=== PATIENT | male | born 1945 | race Caucasian/White ===

== ENCOUNTER 2025-01-06 12:20 | Inpatient (IN) ==
--- NOTE | 2025-01-06 14:29 | XRay Report ---
XR chest 1V portable CLINICAL HISTORY: Dyspnea COMPARISON STUDY: 12/08/2024 FINDINGS: Heart size and pulmonary vasculature are normal. There is a small area of faint patchy opac ity at the lateral right lung base. No other consolidation or pleural effusion. No pneumothorax. IMPRESSION: Possible small area of early pneumonia right lung base. ACT 112: Negative or not required by law. Electronically signed by: Gatito Shaver M.D. 01/06/2025 2:27 PM
[2025-01-06 14:52] LABS: Hematocrit (blood only) 48.9 % (42.0-52.0); Hemoglobin 16.4 g/dL (14.0-18.0); Immature Granulocytes # (auto) 0.05 K/uL (0.01-0.20); Immature Granulocytes % (auto) 0.7 %; Mean Corpuscular Hemoglobin 30.3 pg (25.0-34.0); Mean Corpuscular Volume 90.4 fL (80.0-100.0); Platelet Count 118 K/uL (130-400); RDW Standard Deviation 43.7 fL (36.4-46.3); Red Blood Count 5.41 M/uL (4.70-6.10); White Blood Count 7.45 K/ul (4.8-10.8)
[2025-01-06 15:18] LABS: Alanine Aminotransferase 35 U/L (7-52); Albumin Globulin Ratio 1.3 (0.9-2); Albumin Level 4.2 gm/dl (3.4-5.0); Alkaline Phosphatase 113 U/L (34-104); Anion Gap 10 (3-11); Bilirubin,Total 2.0 mg/dl (0.2-1.0); Blood Urea Nitrogen 30 mg/dl (6-23); Calcium 9.6 mg/dl (8.6-10.3); Carbon Dioxide 27 mmol/L (21-32); Chloride 103 mmol/L (98-107); Globulin 3.3 gm/dl (2.5-4.0); Glucose 209 mg/dl (70-99(Fasting)); Potassium 4.7 mmol/L (3.5-5.1); Sodium 140 mmol/L (136-145); Total Protein 7.5 gm/dl (6.0-8.3)
--- NOTE | 2025-01-06 15:21 | Ultrasound Report ---
US venous doppler LE RT HISTORY: DVT r/o COMPARISON: None TECHNIQUE: Multiple real-time sonographic images of the right lower extremity deep venous structures were obtained assessing grayscale appearance, color and spectral flow. FINDINGS: There is DVT at the right common femoral vein, right superficial femoral vein, and right po pliteal vein. There is superficial thrombus in the greater saphenous vein. Below the knee veins are n ot well seen. There is a Neumann's cyst at the popliteal fossa measuring 5 cm. IMPRESSION: The exam is positive for DVT at the right lower extremity. ACT 112: Negative or not required by law. The above report was generated using voice recognition software. It may contain grammatical, syntax o r spelling errors. Electronically signed by: Gatito Shaver M.D. 01/06/2025 3:20 PM
--- NOTE | 2025-01-06 15:59 | Emergency Department Note ---
History of Present Illness General Chief complaint: Swelling/Edema to Extremity Stated complaint: covid +, r leg swollen, discolored Time Seen by Provider: 01/06/25 13:32 Source: patient Mode of arrival: ambulatory Limitations: no limitations History of Present Illness Maximum Pain Intensity: 0 Patient is an 79-year-old male with history of prior DVT who presents for right lower extremity swelling that he noticed last night. He had stopped his Xarelto 3 days ago in preparation for placement of a spinal stimulator. Unfortunately he tested positive for COVID preoperatively and procedure was discontinued at this time. He says he has been sitting a lot in his recliner chair recently. He also reports some pain in the right lower extremity though it is tolerable at this time. Denies any lightheadedness, dizziness, chest pain, palpitations. No numbness or tingling to the right lower extremity. Home Medications Medication Instructions Recorded Confirmed Type folic acid 800 mcg tablet 0.8 mg PO HS 08/16/24 01/06/25 History furosemide 20 mg tablet (Lasix) 20 mg PO Q OTHER DAY PRN Edema 08/16/24 01/06/25 History losartan 25 mg tablet 25 mg PO HS 08/16/24 01/06/25 History rivaroxaban 20 mg tablet (Xarelto) 20 mg PO QPM 08/16/24 12/26/24 History tamsulosin 0.4 mg capsule 0.4 mg PO QPM 08/16/24 12/26/24 History gabapentin 100 mg capsule 100 mg PO BID 11/07/24 01/06/25 History glipizide 10 mg tablet 10 mg PO QPM 11/07/24 01/06/25 History cholecalciferol (vitamin D3) 125 125 mcg PO HS 12/26/24 01/06/25 History mcg (5,000 unit) tablet (Vitamin D3) fluticasone propionate 50 1 spray intranasal HS 12/26/24 01/06/25 History mcg/actuation nasal spray,suspension lecithin 1,200 mg capsule 2,400 mg PO QAM 12/26/24 01/06/25 History vitamin E 268 mg (400 unit) capsule 2 cap PO QAM 12/26/24 12/26/24 History Allergies Allergy/AdvReac Type Severity Reaction Status Date / Time Penicillins Allergy Mild Swelling Verified 01/06/25 11:35 of the Eye Sulfa (Sulfonamide Allergy Mild swelling Verified 01/06/25 11:35 Antibiotics) morphine AdvReac Intermediate dry heaves Verified 01/06/25 11:35 empagliflozin AdvReac Mild Nausea Verified 01/06/25 11:35 [From Jardiance] metformin AdvReac Mild Heartburn Verified 01/06/25 11:35 semaglutide [From Ozempic] AdvReac Mild Nausea Verified 01/06/25 11:35 Past Med/Surg History Problem List (Updated 01/06/25 @ 15:59 by Franklin Jose MD) DVT (deep venous thrombosis) (Acute) Encounter for pre-operative examination Chronic pain of left ankle Status post ORIF Chronic anticoagulation Polyneuropathy Spinal stenosis of lumbar region Chronic radicular lumbar pain Chronic low back pain Osteoarthritis HTN (hypertension) Medical History (Updated 01/06/25 @ 15:59 by Franklin Joes MD) Hyperthyroidism No meds PCP monitoring Type II diabetes mellitus Per PCP records CHF (congestive heart failure) EF 45% per 2009 ECHO Most recent ECHO May 2022 shows EF 55-60% per cardio records Paroxysmal A-fib on Xarelto Hypertension Chronic back pain On anticoagulant therapy xarelto daily d/t hx of dvt History of peripheral vascular disease History of DVT of lower extremity (02/2014) reason for xarelto--happened after stent placement in right iliac artery History of TMJ syndrome pt states it was "many years ago"--it resolved after "seeing dentist who had him do exercises that cured it" Hepatomegaly Nontoxic goiter Venous insufficiency Parathyroid disease Gout Fatty liver Esophagitis Kidney stones hx Asbestosis History of BPH Surgical History History of anal fistulotomy History of colonoscopy History of esophagogastroduodenoscopy (EGD) Status post scrotal varicocelectomy right History of procedure for peripheral vascular disease before 2019 was last procedure--x4 on right iliac artery/x1 on left History of tooth extraction History of nasal septoplasty Status post biopsy of thyroid gland H/O parathyroidectomy with left side of thyroid removal at same time H/O hemorrhoidectomy History of ankle surgery left ankle History of tonsillectomy History of surgery on arm right arm fracture Family History Other No family history of adverse response to anesthesia Social History (Updated 08/16/24 @ 13:15 by Joy Harrison RN) Smoking Status: Never smoker Second Hand Exposure: No; Do You Dip or Chew Tobacco: No; Hx Alcohol Use: No Hx Substance Use: No Preferred Language: [place] Communication Ability: Effective Visual Impairment: No Limitations [employer] Required: No Beliefs That Will Affect Care: None marital status: Single Current Living Situation: Alone 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 Physical Exam Vital Signs Vital Signs - 24 hr 01/06/25 12:20 01/06/25 12:27 01/06/25 14:13 Temperature 36.7 C Temperature Source Oral Pulse Rate 95 H 83 Pulse Rate [Left Finger] 96 H Pulse Rhythm Regular Pulse Rhythm [Left Finger] Respiratory Rate 18 18 Respiratory Effort / Characteristics Non-Labored Spontaneous Respiratory Depth Normal Respiratory Pattern Regular Blood Pressure 116/83 Blood Pressure [Left Arm] 117/82 Blood Pressure Mean 94 Blood Pressure Mean [Left Arm] 93 Blood Pressure Position Sitting Pulse Oximetry 96 96 98 Oxygen Delivery Method Room Air Room Air Room Air Sepsis Recent Fever Within 48 Hours No Sepsis New/Unexplained Change in Mental Status No Sepsis Action Taken by Nursing No Action Required 01/06/25 14:14 01/06/25 14:20 Temperature Temperature Source Pulse Rate 83 Pulse Rate [Left Finger] 77 Pulse Rhythm Pulse Rhythm [Left Finger] Regular Respiratory Rate 20 Respiratory Effort / Characteristics Non-Labored Spontaneous Respiratory Depth Normal Respiratory Pattern Regular Blood Pressure Blood Pressure [Left Arm] 136/86 Blood Pressure Mean Blood Pressure Mean [Left Arm] 102 Blood Pressure Position Pulse Oximetry 95 Oxygen Delivery Method Room Air Sepsis Recent Fever Within 48 Hours Sepsis New/Unexplained Change in Mental Status Sepsis Action Taken by Nursing See below. Constitutional WD/WN, vitals as above Respiratory normal respiratory effort, lungs clear to auscultation Cardiovascular RRR, no murmur, no edema Musculoskeletal Right lower extremity is dusky and diffusely swollen up to the right groin, 2+ DP pulses noted on the right. No reproducible pain with hyperflexion of the toes on the right foot. Sensation intact in the right lower extremity. Medical Decision Making Differential Diagnosis DDx includes but not limited to: DVT, lymphedema, superficial thrombophlebitis, arterial occlusion Medical Records Attestation: I reviewed the patient's medical records. Home Medications Current Medication List: was personally reviewed by me Laboratory Data Attestation: I reviewed the patient's lab results. 01/06/25 14:25 01/06/25 14:25 Lab Results 01/06/25 Range/Units 14:25 WBC 7.45 (4.8-10.8) K/ul RBC 5.41 (4.70-6.10) M/uL Hgb 16.4 (14.0-18.0) g/dL Hct 48.9 (42.0-52.0) % MCV 90.4 (80.0-100.0) fL MCH 30.3 (25.0-34.0) pg MCHC 33.5 (32.0-36.0) g/dL RDW Std Deviation 43.7 (36.4-46.3) fL RDW Coeff of Diandra 13.2 (11.5-14.5) % Plt Count 118 L (130-400) K/uL MPV 9.7 (9.4-12.4) fL Immature Gran % (Auto) 0.7 % Neut % (Auto) 68.3 % Lymph % (Auto) 19.9 % [place] % (Auto) 10.7 % Eos % (Auto) 0.1 % Baso % (Auto) 0.3 % Neut # (Auto) 5.09 (1.40-6.50) K/uL Lymph # (Auto) 1.48 (1.20-3.40) K/uL [place] # (Auto) 0.80 H (0.11-0.59) K/uL Eos # (Auto) 0.01 (0.00-0.50) K/uL Baso # (Auto) 0.02 (0.00-0.20) K/uL Immature Gran # (Auto) 0.05 (0.01-0.20) K/uL Sodium 140 (136-145) mmol/L Potassium 4.7 (3.5-5.1) mmol/L Chloride 103 (98-107) mmol/L Carbon Dioxide 27 (21-32) mmol/L Anion Gap 10 (3-11) BUN 30 H (6-23) mg/dl Creatinine 1.08 (0.6-1.4) mg/dl Est Cr Clr Drug Dosing Not Reportable eGFR 68.94 BUN/Creatinine Ratio 27.8 H (10-20) Glucose 209 H (70-99(Fasting)) mg/dl Calcium 9.6 (8.6-10.3) mg/dl Total Bilirubin 2.0 H (0.2-1.0) mg/dl AST 25 (13-39) U/L ALT 35 (7-52) U/L Alkaline Phosphatase 113 H (34-104) U/L Troponin I High Sens 7.0 (0-20) pg/ml B-Natriuretic Peptide 16 (0-100) pg/ml Total Protein 7.5 (6.0-8.3) gm/dl Albumin 4.2 (3.4-5.0) gm/dl Globulin 3.3 (2.5-4.0) gm/dl Albumin/Globulin Ratio 1.3 (0.9-2) Imaging Data Radiologist's Impression: Chest X-Ray 01/06/25 13:33 XR chest 1V portable CLINICAL HISTORY: Dyspnea COMPARISON STUDY: 12/08/2024 FINDINGS: Heart size and pulmonary vasculature are normal. There is a small area of faint patchy opacity at the lateral right lung base. No other consolidation or pleural effusion. No pneumothorax. IMPRESSION: Possible small area of early pneumonia right lung base. ACT 112: Negative or not required by law. Electronically signed by: Gatito Shaver M.D. 01/06/2025 2:27 PM Venous Doppler Study 01/06/25 13:56 US venous doppler LE RT HISTORY: DVT r/o COMPARISON: None TECHNIQUE: Multiple real-time sonographic images of the right lower extremity deep venous structures were obtained assessing grayscale appearance, color and spectral flow. FINDINGS: There is DVT at the right common femoral vein, right superficial femoral vein, and right popliteal vein. There is superficial thrombus in the greater saphenous vein. Below the knee veins are not well seen. There is a Neumann's cyst at the popliteal fossa measuring 5 cm. IMPRESSION: The exam is positive for DVT at the right lower extremity. ACT 112: Negative or not required by law. The above report was generated using voice recognition software. It may contain grammatical, syntax or spelling errors. Electronically signed by: Gatito Shaver M.D. 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 He has diffuse edema to the right lower extremity with some discoloration however arterial pulses are noted in right foot. Pain is tolerable here in the ED. No sensation deficits or weakness noted on my examination. DVT ultrasound shows evidence of extensive DVT from the right popliteal vein to the common femoral vein. Spoke with Dr. Shi with vascular surgery who recommends starting patient on heparin and will consult on the patient as an inpatient. No indication for thrombectomy at this time. CTA was ordered to rule out any arterial process based on the findings on clinical exam. Signed out to Dr. Fernandes pending results of CTA and admission to hospitalist service. Impression & Plan DVT (deep venous thrombosis) Discharge Plan Visit Data Chief Complaint: Swelling/Edema to Extremity Stated Complaint: covid +, r leg swollen, discolored ED Provider: Franklin Jose Discharge Problem: DVT (deep venous thrombosis) Patient Disposition: Admitted As Inpatient Condition: Good Forms Stand Alone Forms: [facility] [employer] Prescriptions Prescriptions: No Action tamsulosin 0.4 mg capsule 0.4 mg PO QPM Xarelto 20 mg tablet 20 mg PO QPM Rx Instructions: must administer with evening meal losartan 25 mg tablet 25 mg PO HS furosemide [Lasix] 20 mg tablet 20 mg PO Q OTHER DAY PRN (Reason: Edema) folic acid 800 mcg tablet 0.8 mg PO HS glipizide 10 mg tablet 10 mg PO QPM gabapentin 100 mg capsule 100 mg PO BID fluticasone propionate 50 mcg/actuation [place],Suspension 1 spray INTRANASAL HS Rx Instructions: administer into each nostril cholecalciferol (vitamin D3) [Vitamin D3] 125 mcg (5,000 unit) Tablet 125 mcg PO HS lecithin 1,200 mg Capsule 2,400 mg PO QAM vitamin E [Vitamin E-400] 268 mg (400 unit) Capsule 2 cap PO QAM Referrals Referrals: Jonny Tierney D.O. [Primary Care Provider] -
[2025-01-06] MEDS ORDERED: HEPARIN SOD (PORCINE) 1000 UNIT/ML IV ONE (16:15)
[2025-01-06] MEDS: OPTIRAY 320 125ml IV ONE (16:39)
[2025-01-06] MEDS: HEPARIN SOD (PORCINE) 1000 UNIT/ML IV ONE (16:54)
[2025-01-06] MEDS: HEPARIN 25000 UNIT/500 ML D5W 25,000 UNITS/500 ML BAG IV SCH (16:54)
[2025-01-06] MEDS: Heparin IV Adult Wt-Based Standard w/ INITIAL Bolus Protocol IV STA (16:59)
[2025-01-06 18:56] LABS: Appearance Urine Clear (Clear); Bacteria Urine Automated None Seen (None Seen); Glucose Urine UA 1+ (Negative); RBC Urine Automated 0-2 /hpf (0-2); WBC Urine Automated 0-5 /hpf (0-5)
--- NOTE | 2025-01-06 19:21 | CT Scan Report ---
Technique: Axial computed tomography images were obtained of the abdomen, pelvis, and lower extremities after the administration of intravenous contrast according to the CT angiogram protocol No prior examination is available for comparison Findings: The abdominal aorta appears unremarkable with no sign of aneurysm or dissection. No stenosis is seen involving it. The celiac axis and superior mesenteric artery are patent with no stenosis identified. The inferior mesenteric artery is patent as well. There is no sign of renal artery stenosis. The right common iliac, external iliac, and internal iliac arteries appear unremarkable. No stenosis is seen of the right common femoral artery. The right profunda femoral artery is patent. There is no significant stenosis of the right superior femoral or popliteal arteries. The right calf arteries demonstrate limited contrast enhancement. There is suspected occlusion of the right anterior tibial artery proximally. There is possible occlusion of the right posterior tibial and peroneal arteries also The left common iliac, external iliac, and internal iliac arteries appear unremarkable. No stenosis is seen of the left common femoral artery. The left profunda femoral artery is patent. There is multifocal plaque in the left superficial femoral artery, without significant stenosis. No stenosis is seen of the left popliteal artery. There is occlusion of the left anterior tibial artery proximally. There are several moderate severity stenoses of the proximal and mid left peroneal artery. No definite stenosis is seen of the left posterior tibial artery There is fatty infiltration of the liver. There is a 1.2 cm apparent cyst in the right hepatic lobe. No definite liver mass lesion is seen. The portal vein is patent. The gallbladder appears unremarkable. No bile duct dilatation is noted. The spleen is of normal size. No focal splenic lesion is evident. The pancreas appears normal with no sign of acute or chronic pancreatitis and no mass lesion noted. The pancreatic duct is of normal caliber. The adrenal glands appear unremarkable. No definite renal or proximal ureteral calculi are seen on this contrast-enhanced study. There is no hydronephrosis or perinephric stranding. No renal mass lesion is identified. There is a 1.5 cm right renal cyst and there is a suspected 4 mm left renal cyst No adenopathy is seen. The stomach appears normal. There is no sign of small bowel obstruction. There is diverticulosis without evidence of diverticulitis. There is no sign of appendicitis. No free intraperitoneal fluid or air is identified. No distal ureteral or bladder calculi are seen. No bladder mass lesion is evident. There are stents in the common iliac veins bilaterally and the right external iliac vein Mild patchy opacity in the right lower lobe is likely due to atelectasis or scar. There is coronary atherosclerosis No fracture is identified. No focal osseous lesion is seen. There is lumbar scoliosis and degenerative disc disease. There are apparent varicose veins in the medial right leg There is a 5.4 x 3.1 cm right knee Neumann's cyst. There is a smaller left knee Neumann's cyst containing apparent joint body. There is subcutaneous edema in the right calf and to a lesser extent the left calf Impression: 1. Normal-appearing abdominal aorta 2. No sign of renal or mesenteric artery stenosis 3. No apparent stenosis of the pelvic or proximal leg arteries 5. Occlusion of the RICHI bilaterally. There is possible occlusion of the right [employer] and peroneal arteries as well, with evaluation limited by suboptimal contrast enhancement. There are moderate severity stenoses of the left peroneal artery 6. Bilateral common iliac vein and right external iliac vein stents 7. Fatty infiltration of the liver 8. Hepatic and bilateral renal cysts 9. Diverticulosis without evidence of diverticulitis 10. Right knee Neumann's cyst and smaller left knee Neumann's cyst containing a joint body 11. Coronary atherosclerosis ACT 112: Positive. There are findings on this exam that require communication between the performing entity and the patient following Patient Test Result Information Act ([place] ACT 112) guidelines. Electronically signed by Nikita Jaeger 01-06-2025 7:20 PM
--- NOTE | 2025-01-06 19:51 | Emergency Department Note ---
ED Visit Note Received this patient in signout from Dr. Jose. Patient on Xarelto for hopeful pain pump placement tested positive COVID and had increased right leg swelling. Found to have a large DVT here extended the common femoral vein. CT angio of the lower leg was obtained although the patient had pulses and sensation given the swelling. This was finally obtained after new IV was placed and radiology interpretation showing evidence of intact upper stents although some distal tibial vascular abnormalities are noted. No believe the patient suffering from a cold or ischemic limb at this time and has already been anticoagulated with heparin. Will have the patient admitted and vascular surgery consulted for evaluation tomorrow. Patient again not in distress and eager to eat at this point. Do not believe he requires further emergent intervention at this point. .
--- NOTE | 2025-01-06 19:55 | History & Physical Report ---
Date of Service January 06, 2025 Assessment & Plan (1) DVT (deep venous thrombosis): (2) COVID toes: (3) Hyperbilirubinemia: Plan 79-year-old male PMHx HTN, OA, chronic radicular lumbar pain/low back pain, history of DVT on Xarelto, and BPH presenting for R leg swelling and discolo ration. Patient has been off his Xarelto for approximately 3 days for preprocedure reasons. His evaluation is without leukocytosis/leukopenia, stable H&H, plt at 118,; CMP no gross electrolyte abnormalities with exception of slightly elevated BUN/creatinine ratio 27.8 and a bilirubin of 2. UA without infection. He is COVID-positive and CXR reveals a possible R lobe developing pneumonia. Venous Doppler of the RLE is positive for a DVT, and aorta with runoff CTA shows occlusion of RICHI bilaterally and possible occlusion of R CORRECTIVE THERAPY AIDE and peroneal arteries. Heparin drip is initiated in the ED. Patient without respiratory symptoms at time of admission. Further management for DVT. #RLE DVT Prior history on DVT, on Xarelto at baseline but had discontinued his Xarelto approximately 3 days CATERING CHEF as he was to have a procedure on 01/06/2025 for a pain pump/stimulator, ultimately canceled as he tested positive for COVID-19. ? Xarelto failure, has been off for ~ 3 days then with a very quick development of clot if so. Will consult pain management as well in terms of moving forward with pain stimulator placement and how that will look moving forward if patient unable to be off anticoagulation. - CBC stable H/H, plt 118; PT/INR pending - Hypercoag workup pending (deferred anti-thrombin III + lupus testing since on heparin) - RLE venous Doppler positive for DVT (R common femoral, R superficial femoral, R popliteal, superficial thrombus great saphenous vein) - Aorta with runoff CTA occlusion RICHI bilaterally, possible occlusion RPCA and peroneal arteries, moderate stenosis L peroneal artery - EKG pending - Continue to hold po Xarelto - Heparin drip initiated - continue - Vascular consulted - appreciate input + recs - Hematology consulted - appreciate input + recs - Pain management consulted - appreciate input + recs #COVID COVID 19 diagnosed earlier day of arrival, however patient was without symptoms. Reports ~ 1 week CATERING CHEF was with URI symptoms and cough (nonproductive), utilized at home nebulizer and felt better. Seen 4 day CATERING CHEF, prescribed Z-pack at that time, has been taking as prescribed. Unknown sick contacts. Not hypoxic. - CBC without leukocytosis or leukopenia - CXR possible small early pneumonia at the R lung base - IS, O2 if needed - none at baseline - Isolation precautions - DuoNeb prn wheezing/SOB - D/c Z-pack - deferred further antibiotics at time of admission, no bacterial infection -- adjust as medically appropriate #Hyperbilirubinemia Without abdominal pain, no vomiting. Still with gallbladder. - Bilirubin 2.0, LFTs otherwise WNL; pending direct bilirubin - Aorta w/ runoff CTA reveals hepatic cysts and fatty infiltration of liver, gallbladder is unremarkable w/o bile duct dilatation - Further imaging deferred at time of admission #T2DM H/o T2DM; At home regimen includes glipizide, no insulin use. Neuropathy as well, on gabapentin. - Glucose on arrival 209; A1c pending - SSI deferred at time of admission - continue home glipizide - Continue gabapentin - BSG ACHS - Adjust regimen as needed #HTN- Losartan - continue #Edema- Furosemide prn - hold at time of admission #BPH- Tamsulosin - continue Dispo: Admit, PCU VTE Prophylaxis: Heparin - treatment dose This document was dictated utilizing [employer]. Please excuse any grammatical errors that may be secondary to use of this software. Admission and Anticipated Discharge Date Admission Date: 01/06/2025 History of Present Illness Chief Complaint: RLE pain/swelling Primary Care Provider: Jonny Tierney 79-year-old male PMHx HTN, OA, chronic radicular lumbar pain/low back pain, history of DVT on Xarelto, and BPH presenting for R leg swelling and discoloration. Patient has been off of his Xarelto for 3 days as he was due to have a nerve stimulator placed the day of arrival but unfortunately tested positive for COVID so the procedure was canceled. Patient reports prior history of DVT in the right leg in February 2024 because his "vessels were crushed" and this required surgical intervention. He notes for the past 3 days CATERING CHEF he has been off of his Xarelto because he was scheduled to have a pain pump/stimulator placed on the day of arrival. At approximately 0300 the day CATERING CHEF he notes that his thigh started to have some discomfort and appeared discolored. He sat in his recliner most of the time and was very noticeable of the symptoms. His thigh became a darker purple and was tender to touch, he initially thought it was a charley horse but states that it felt a little different than normal charley horse. He was having difficulties walking secondary to the pain. He was seen by the preop nurse the morning of arrival, inevitably testing positive for COVID-19 but also notes that the nurse was concerned about the patient's leg, stating that it appeared abnormal. Given that he was unable to have the surgery secondary to testing positive for COVID, he came to the ED. Patient is without any respiratory symptoms at this time. No palpitations, dizziness, or near syncope. Patient reports that he does not have any known sick contacts specifically with COVID-19. However the week CATERING CHEF he did have few days of cold- like symptoms with a nonproductive cough which he says has resolved mostly. He was prescribed an oral antibiotic from his PCP in [place] for the symptoms which he has been taking as prescribed. Patient denies chest pain, SOB, palpitations, abdominal pain, N/V/D/C, numbness/tingling, fever/chills, LUTS, weakness, syncope, or falls. ED evaluation CBC without leukocytosis, stable H&H; CMP BUN 30, ratio 27.8, glucose 209, bilirubin 2, alkaline phosphatase 113; UA not suspicious for infection; COVID-positive; CXR possible small early PNA R lung base; venous Doppler R LE positive DVT of RLE (right, femoral vein, right superficial femoral vein, right popliteal vein); aorta with runoff CTA normal- appearing aorta, no stenosis renal/mesenteric/pelvic/proximal arteries, occlusion of RICHI bilaterally and possible occlusion of R CORRECTIVE THERAPY AIDE and peroneal arteries, bilateral common iliac vein and right external iliac vein stents, fatty infiltrated liver, hepatic bilateral renal cyst, diverticulosis without diverticulitis, and right knee Neumann's cyst with small L knee Neumann's cyst of joint body, coronary atherosclerosis.; Provided with heparin drip as initiated in ED. Please see Dr. Macario's attestation for adjustments/additions to treatment plan. Allergies Allergy/AdvReac Type Severity Reaction Status Date / Time Penicillins Allergy Mild Swelling Verified 01/06/25 11:35 of the Eye Sulfa (Sulfonamide Allergy Mild swelling Verified 01/06/25 11:35 Antibiotics) morphine AdvReac Intermediate dry heaves Verified 01/06/25 11:35 empagliflozin AdvReac Mild Nausea Verified 01/06/25 11:35 [From Jardiance] metformin AdvReac Mild Heartburn Verified 01/06/25 11:35 semaglutide [From Ozempic] AdvReac Mild Nausea Verified 01/06/25 11:35 Home Medications Medication Instructions Recorded Confirmed Type folic acid 800 mcg tablet 0.8 mg PO HS 08/16/24 01/06/25 History furosemide 20 mg tablet (Lasix) 20 mg PO Q OTHER DAY PRN Edema 08/16/24 01/06/25 History rivaroxaban 20 mg tablet (Xarelto) 20 mg PO QPM 08/16/24 01/06/25 History tamsulosin 0.4 mg capsule 0.4 mg PO QPM 08/16/24 01/06/25 History gabapentin 100 mg capsule 100 mg PO BID 11/07/24 01/06/25 History glipizide 10 mg tablet 10 mg PO QPM 11/07/24 01/06/25 History cholecalciferol (vitamin D3) 125 125 mcg PO HS 12/26/24 01/06/25 History mcg (5,000 unit) tablet (Vitamin D3) fluticasone propionate 50 1 spray intranasal HS 12/26/24 01/06/25 History mcg/actuation nasal spray,suspension lecithin 1,200 mg capsule 2,400 mg PO QAM 12/26/24 01/06/25 History vitamin E 268 mg (400 unit) capsule 2 cap PO QAM 12/26/24 01/06/25 History losartan 25 mg tablet 25 mg PO HS 01/06/25 01/06/25 History Past Med/Surg History Problem List (Updated 01/06/25 @ 20:01 by Ethan Cartagena PA-C) Hyperbilirubinemia COVID toes DVT (deep venous thrombosis) (Acute) Encounter for pre-operative examination Chronic pain of left ankle Status post ORIF Chronic anticoagulation Polyneuropathy Spinal stenosis of lumbar region Chronic radicular lumbar pain Chronic low back pain Osteoarthritis HTN (hypertension) Medical History Hyperthyroidism No meds PCP monitoring Type II diabetes mellitus Per PCP records CHF (congestive heart failure) EF 45% per 2010 ECHO Most recent ECHO May 2022 shows EF 55-60% per cardio records Paroxysmal A-fib on Xarelto Hypertension Chronic back pain On anticoagulant therapy xarelto daily d/t hx of dvt History of peripheral vascular disease History of DVT of lower extremity (02/2014) reason for xarelto--happened after stent placement in right iliac artery History of TMJ syndrome pt states it was "many years ago"--it resolved after "seeing dentist who had him do exercises that cured it" Hepatomegaly Nontoxic goiter Venous insufficiency Parathyroid disease Gout Fatty liver Esophagitis Kidney stones hx Asbestosis History of BPH Surgical History History of anal fistulotomy History of colonoscopy History of esophagogastroduodenoscopy (EGD) Status post scrotal varicocelectomy right History of procedure for peripheral vascular disease before 2019 was last procedure--x4 on right iliac artery/x1 on left History of tooth extraction History of nasal septoplasty Status post biopsy of thyroid gland H/O parathyroidectomy with left side of thyroid removal at same time H/O hemorrhoidectomy History of ankle surgery left ankle History of tonsillectomy History of surgery on arm right arm fracture Family History Other No family history of adverse response to anesthesia Social History Smoking Status: Never smoker Second Hand Exposure: No; Do You Dip or Chew Tobacco: No; Hx Alcohol Use: No Hx Substance Use: No Preferred Language: [place]an Communication Ability: Effective Visual Impairment: No Limitations Associate Professor Of Geology Required: No Beliefs That Will Affect Care: None marital status: Single Current Living Situation: Alone current occupational status: 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 Other Information That Helps Us Care for You: No Feels Safe at Home: Yes Safety Concerns: Feels Safe At This Time Assistive Devices: None Review of Systems Review of Systems: All systems reviewed & are unremarkable except as noted in Subjective Physical Exam Physical Exam: General: No acute distress Skin: Warm and dry Head: Normocephalic, atraumatic Eyes: PERRL, conjunctivae clear, sclera non-icteric ENT: External ear and ear canal without swelling; nose atraumatic; good dentition, tongue normal appearance, pharynx normal Neck: Supple, no LAD Cardio: RRR, no M/G/R, S1 and S2 normal Resp: No respiratory distress, Lungs CTA in all lobes bilaterally, no wheezes, rales, or rhonchi Abdomen: Soft, symmetric, nontender; No masses or hepatosplenomegaly; Bowel sounds normoactive MSK: No deformities; pulses palpable and equal; RLE edematous and slightly purple in color compared to LLE. Neuro: Awake, alert; Sensation intact bilaterally; CN grossly intact Psych: Appropriate mood and affect; good judgement and insight. Results & Data Results & Data Vital Signs (Past 12 Hours) Vital Signs Temp Pulse Pulse Resp BP BP Pulse Ox 01/06/25 19:20 78 01/06/25 18:00 83 20 181/107 H 97 01/06/25 16:00 77 20 161/95 H 96 01/06/25 14:20 77 20 136/86 95 01/06/25 14:14 83 01/06/25 14:13 83 98 01/06/25 12:27 36.7 C 95 H 18 116/83 96 01/06/25 12:20 96 H 18 117/82 96 O2 Del Method 01/06/25 19:20 01/06/25 18:00 Room Air 01/06/25 16:00 Room Air 01/06/25 14:20 Room Air 01/06/25 14:14 01/06/25 14:13 Room Air 01/06/25 12:27 Room Air 01/06/25 12:20 Room Air Laboratory Results 01/06/25 01/06/25 18:30 14:25 WBC 7.45 RBC 5.41 Hgb 16.4 Hct 48.9 MCV 90.4 MCH 30.3 MCHC 33.5 RDW Std Deviation 43.7 RDW Coeff of Diandra 13.2 Plt Count 118 L MPV 9.7 Immature Gran % (Auto) 0.7 Neut % (Auto) 68.3 Lymph % (Auto) 19.9 [place] % (Auto) 10.7 Eos % (Auto) 0.1 Baso % (Auto) 0.3 Neut # (Auto) 5.09 Lymph # (Auto) 1.48 [place] # (Auto) 0.80 H Eos # (Auto) 0.01 Baso # (Auto) 0.02 Immature Gran # (Auto) 0.05 Sodium 140 Potassium 4.7 Chloride 103 Carbon Dioxide 27 Anion Gap 10 BUN 30 H Creatinine 1.08 Est Cr Clr Drug Dosing Not Reportable eGFR 68.94 BUN/Creatinine Ratio 27.8 H Glucose 209 H Calcium 9.6 Total Bilirubin 2.0 H AST 25 ALT 35 Alkaline Phosphatase 113 H Troponin I High Sens 7.0 B-Natriuretic Peptide 16 Total Protein 7.5 Albumin 4.2 Globulin 3.3 Albumin/Globulin Ratio 1.3 Urine Color Dark Yellow Urine Appearance Clear Urine pH 5.0 Ur Specific [place] > 1.045 H Urine Protein 2+ H Urine Glucose (UA) 1+ H Urine Ketones Trace H Urine Blood Negative Urine Nitrite Negative Urine Bilirubin 1+ H Urine Urobilinogen Negative Ur Leukocyte Esterase Negative Urine WBC (Auto) 0-5 Urine RBC (Auto) 0-2 U Hyaline Cast (Auto) 3-5 H U Epithel Cells (Auto) 3-5 H Urine Bacteria (Auto) None Seen Urine Comment Diagnostic Findings Chest X-Ray 01/06/25 13:33 XR chest 1V portable CLINICAL HISTORY: Dyspnea COMPARISON STUDY: 12/08/2024 FINDINGS: Heart size and pulmonary vasculature are normal. There is a small area of faint patchy opacity at the lateral right lung base. No other consolidation or pleural effusion. No pneumothorax. IMPRESSION: Possible small area of early pneumonia right lung base. ACT 112: Negative or not required by law. Electronically signed by: Gatito Shaver M.D. 01/06/2025 2:27 PM Venous Doppler Study 01/06/25 13:56 US venous doppler LE RT HISTORY: DVT r/o COMPARISON: None TECHNIQUE: Multiple real-time sonographic images of the right lower extremity deep venous structures were obtained assessing grayscale appearance, color and spectral flow. FINDINGS: There is DVT at the right common femoral vein, right superficial femoral vein, and right popliteal vein. There is superficial thrombus in the greater saphenous vein. Below the knee veins are not well seen. There is a Neumann's cyst at the popliteal fossa measuring 5 cm. IMPRESSION: The exam is positive for DVT at the right lower extremity. ACT 112: Negative or not required by law. The above report was generated using voice recognition software. It may contain grammatical, syntax or spelling errors. Electronically signed by: Gatito Shaver M.D. 01/06/2025 3:20 PM Aorta w/Runoff CTA 01/06/25 15:42 Technique: Axial computed tomography images were obtained of the abdomen, pelvis, and lower extremities after the administration of intravenous contrast according to the CT angiogram protocol No prior examination is available for comparison Findings: The abdominal aorta appears unremarkable with no sign of aneurysm or dissection. No stenosis is seen involving it. The celiac axis and superior mesenteric artery are patent with no stenosis identified. The inferior mesenteric artery is patent as well. There is no sign of renal artery stenosis. The right common iliac, external iliac, and internal iliac arteries appear unremarkable. No stenosis is seen of the right common femoral artery. The right profunda femoral artery is patent. There is no significant stenosis of the right superior femoral or popliteal arteries. The right calf arteries demonstrate limited contrast enhancement. There is suspected occlusion of the right anterior tibial artery proximally. There is possible occlusion of the right posterior tibial and peroneal arteries also The left common iliac, external iliac, and internal iliac arteries appear unremarkable. No stenosis is seen of the left common femoral artery. The left profunda femoral artery is patent. There is multifocal plaque in the left superficial femoral artery, without significant stenosis. No stenosis is seen of the left popliteal artery. There is occlusion of the left anterior tibial artery proximally. There are several moderate severity stenoses of the proximal and mid left peroneal artery. No definite stenosis is seen of the left posterior tibial artery There is fatty infiltration of the liver. There is a 1.2 cm apparent cyst in the right hepatic lobe. No definite liver mass lesion is seen. The portal vein is patent. The gallbladder appears unremarkable. No bile duct dilatation is noted. The spleen is of normal size. No focal splenic lesion is evident. The pancreas appears normal with no sign of acute or chronic pancreatitis and no mass lesion noted. The pancreatic duct is of normal caliber. The adrenal glands appear unremarkable. No definite renal or proximal ureteral calculi are seen on this contrast-enhanced study. There is no hydronephrosis or perinephric stranding. No renal mass lesion is identified. There is a 1.5 cm right renal cyst and there is a suspected 4 mm left renal cyst No adenopathy is seen. The stomach appears normal. There is no sign of small bowel obstruction. There is diverticulosis without evidence of diverticulitis. There is no sign of appendicitis. No free intraperitoneal fluid or air is identified. No distal ureteral or bladder calculi are seen. No bladder mass lesion is evident. There are stents in the common iliac veins bilaterally and the right external iliac vein Mild patchy opacity in the right lower lobe is likely due to atelectasis or scar. There is coronary atherosclerosis No fracture is identified. No focal osseous lesion is seen. There is lumbar scoliosis and degenerative disc disease. There are apparent varicose veins in the medial right leg There is a 5.4 x 3.1 cm right knee Neumann's cyst. There is a smaller left knee Neumann's cyst containing apparent joint body. There is subcutaneous edema in the right calf and to a lesser extent the left calf Impression: 1. Normal-appearing abdominal aorta 2. No sign of renal or mesenteric artery stenosis 3. No apparent stenosis of the pelvic or proximal leg arteries 5. Occlusion of the RICHI bilaterally. There is possible occlusion of the right CORRECTIVE THERAPY AIDE and peroneal arteries as well, with evaluation limited by suboptimal contrast enhancement. There are moderate severity stenoses of the left peroneal artery 6. Bilateral common iliac vein and right external iliac vein stents 7. Fatty infiltration of the liver 8. Hepatic and bilateral renal cysts 9. Diverticulosis without evidence of diverticulitis 10. Right knee Neumann's cyst and smaller left knee Neumann's cyst containing a joint body 11. Coronary atherosclerosis ACT 112: Positive. There are findings on this exam that require communication between the performing entity and the patient following Patient Test Result Information Act ([place] ACT 112) guidelines. Electronically signed by Nikita Jaeger 01-06-2025 7:20 PM Medications Administered Heparin drip IV Code Status & VTE Plan Code Status Full Supervising Physician Co-Signing Physician Notes Attending addendum: I have physically seen this patient, have supervised the CHRIS's ctivities, and agree with the H&P unless as otherwise noted. Assessment and Plan: The patient is an 79-year-old male with past medical history occluding hypertension, JASPER, chronic radicular lumbar pain, history of DVT on Xarelto, and BPH. He presents to the emergency department with complaint of right leg swelling and discoloration. The patient had been off his Xarelto for 3 days preprocedure. Significant workup in the emergency department included COVID- positive testing, and chest x-ray with a possible right lobe developing pneumonia. Venous Doppler of the right lower extremity is positive for DVT, and aorta with runoff CTA shows occlusion of RICHI bilaterally, and possible occlusion of right CORRECTIVE THERAPY AIDE and peroneal arteries. Heparin drip was initiated emergency de partment, the [facility]. Right lower extremity DVT/prior history of DVT/abnormal lower extremity arterial studies- Patient has been on Xarelto but was off for 3 days prior to anticipated surgery. He was have a procedure on 01/06/2025 for pain pump/stimulator. Will consult hematology for their opinion regarding whether this is considered a Xarelto failure, or the patient can resume Xarelto again. Will continue heparin drip per protocol at this time Consult vascular surgery Consult hematology Consult pain management COVID-19 infection- Patient with no specific symptoms This infection does increase hypercoagulability Standard COVID precautions DuoNebs every 2 hours as needed Diabetes mellitus type 2-glucose 209 on admission Order hemoglobin A1c Glipizide as noted Accu-Cheks AC and at bedtime with NovoLog coverage Remaining orders and notations as noted PG Care Time/CCT Total # of Minutes Spent Total Time Spent with Patient: Total time spent is greater than 50% in coordination of care (as documented) at patient's floor/unit and/or counseling patient: Coding Level of Care Code 97832 INT INP/OBS CARE 3/75MIN Diagnoses DVT (deep venous thrombosis) I82.409 COVID toes U07.1; R23.8 Hyperbilirubinemia E80.6
[2025-01-07 00:12] LABS: INR 1.4 (0.9-1.1); Prothrombin Time 14.1 Seconds (9.0-12.0)
[2025-01-07 00:14] LABS: ANTI-Xa, UFH(UnfractionatedHep 1.01 IU/ml (0.3-0.7)
[2025-01-07] MEDS ORDERED: ALBUT/IPRATROP 3MG/0.5MG NEB 3 ML VIAL NEB PRN (01:51)
[2025-01-07] MEDS ORDERED: ONDANSETRON INJ 2 MG/ML 2 ML VIAL IV PRN (01:51)
[2025-01-07] MEDS ORDERED: MELATONIN 3 MG TAB PO PRN (01:51)
[2025-01-07] MEDS: FOLIC ACID 400 MCG TAB PO SCH (02:13)
[2025-01-07] MEDS: TAMSULOSIN HCL 0.4 MG CAP PO SCH (02:14)
[2025-01-07] MEDS: LOSARTAN POTASSIUM 25 MG TAB PO SCH (02:14)
[2025-01-07] MEDS: CHOLECALCIFEROL 125 MCG (5,000 UNITS) TAB PO SCH (02:14)
[2025-01-07] MEDS: GABAPENTIN 100 MG CAP PO SCH (02:14)
--- NOTE | 2025-01-07 08:11 | Vascular Surgery Consultation ---
Date of Consultation January 07, 2025 Assessment & Plan (1) DVT (deep venous thrombosis): Improvement in symptoms from acute RLE DVT with anticoagulation. Would continue IV heparin over the weekend. If symptoms persist could consider mechanical venous thrombectomy on Thursday. History of Present Illness Attending Physician: Kamron Burden MD History of Present Illness Asked to evaluate this 79 yo male with Right lower extremity DVT. Patient underwent bilateral staged iliac vein stents in [place], [place] by Dr. Fisher - right in ~2015 and left in ~2017. Underwent several subsequent deep venous angioplasties (by his recall) but no interventions in the last 4 or so years. Developed acute onset right leg swelling about 24 hours ago while holding anticoagulation in anticipation of a pain management intervention. Since admission last night (on heparin) has noticed significant improvement in swelling and in discoloration. No neurologic deficits. Has tested COVID (+) Allergies Allergy/AdvReac Type Severity Reaction Status Date / Time Penicillins Allergy Mild Swelling Verified 01/06/25 11:35 of the Eye Sulfa (Sulfonamide Allergy Mild swelling Verified 01/06/25 11:35 Antibiotics) morphine AdvReac Intermediate dry heaves Verified 01/06/25 11:35 empagliflozin AdvReac Mild Nausea Verified 01/06/25 11:35 [From Jardiance] metformin AdvReac Mild Heartburn Verified 01/06/25 11:35 semaglutide [From Ozempic] AdvReac Mild Nausea Verified 01/06/25 11:35 Home Medications Medication Instructions Recorded Confirmed Type folic acid 800 mcg tablet 0.8 mg PO HS 08/16/24 01/06/25 History furosemide 20 mg tablet (Lasix) 20 mg PO Q OTHER DAY PRN Edema 08/16/24 01/06/25 History rivaroxaban 20 mg tablet (Xarelto) 20 mg PO QPM 08/16/24 01/06/25 History tamsulosin 0.4 mg capsule 0.4 mg PO QPM 08/16/24 01/06/25 History gabapentin 100 mg capsule 100 mg PO BID 11/07/24 01/06/25 History glipizide 10 mg tablet 10 mg PO QPM 11/07/24 01/06/25 History cholecalciferol (vitamin D3) 125 125 mcg PO HS 12/26/24 01/06/25 History mcg (5,000 unit) tablet (Vitamin D3) fluticasone propionate 50 1 spray intranasal HS 12/26/24 01/06/25 History mcg/actuation nasal spray,suspension lecithin 1,200 mg capsule 2,400 mg PO QAM 12/26/24 01/06/25 History vitamin E 268 mg (400 unit) capsule 2 cap PO QAM 12/26/24 01/06/25 History losartan 25 mg tablet 25 mg PO HS 01/06/25 01/06/25 History Patient History Medical History Hyperthyroidism No meds PCP monitoring Type II diabetes mellitus Per PCP records CHF (congestive heart failure) EF 45% per 2009 ECHO Most recent ECHO May 2022 shows EF 55-60% per cardio records Paroxysmal A-fib on Xarelto Hypertension Chronic back pain On anticoagulant therapy xarelto daily d/t hx of dvt History of peripheral vascular disease History of DVT of lower extremity (02/2014) reason for xarelto--happened after stent placement in right iliac artery History of TMJ syndrome pt states it was "many years ago"--it resolved after "seeing dentist who had him do exercises that cured it" Hepatomegaly Nontoxic goiter Venous insufficiency Parathyroid disease Gout Fatty liver Esophagitis Kidney stones hx Asbestosis History of BPH Surgical History History of anal fistulotomy History of colonoscopy History of esophagogastroduodenoscopy (EGD) Status post scrotal varicocelectomy right History of procedure for peripheral vascular disease before 2019 was last procedure--x4 on right iliac artery/x1 on left History of tooth extraction History of nasal septoplasty Status post biopsy of thyroid gland H/O parathyroidectomy with left side of thyroid removal at same time H/O hemorrhoidectomy History of ankle surgery left ankle History of tonsillectomy History of surgery on arm right arm fracture Family History Other No family history of adverse response to anesthesia Social History Smoking Status: Never smoker Second Hand Exposure: No; Do You Dip or Chew Tobacco: No; Hx Alcohol Use: No Hx Substance Use: No Preferred Language: Burundian Communication Ability: Effective Visual Impairment: No Limitations Automobile Locator Required: No Beliefs That Will Affect Care: None marital status: Single Current Living Situation: Alone current occupational status: 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 Right leg has moderate swelling from thigh through calf and foot which to his assessment is improved since admission. No motor or sensory deficit. Cannot feel right dp pulse due to swelling. Right pt pulse is weakly palpable. Left leg has no swelling. Left dp/pt pulses palpable. Results & Data Vital Signs (Past 12 Hours) Vital Signs Temp Pulse Pulse Resp BP BP Pulse Ox 01/07/25 07:13 37.3 C 85 20 141/83 H 95 01/07/25 02:48 81 01/07/25 01:55 37.3 C 76 18 163/99 H 98 01/07/25 01:53 01/07/25 01:11 82 15 165/93 H 97 01/07/25 00:40 80 16 132/87 97 01/06/25 23:24 82 01/06/25 22:00 88 18 146/113 H 98 O2 Del Method 01/07/25 07:13 Room Air 01/07/25 02:48 01/07/25 01:55 Room Air 01/07/25 01:53 Room Air 01/07/25 01:11 Room Air 01/07/25 00:40 Room Air 01/06/25 23:24 01/06/25 22:00 Room Air Diagnostic Findings CTA suggests no flow in tibial arteries but i suspect this is due to timing due to the palpable pulses on exam. Duplex shows right femoral/popliteal DVT PG Care Time/CCT Total # of Minutes Spent Total Time Spent with Patient: Total time spent is greater than 50% in coordination of care (as documented) at patient's floor/unit and/or counseling patient: Coding Level of Care Code 14171 IN/OBS CONSULT LVL 4,60M Diagnoses DVT (deep venous thrombosis) I82.409
[2025-01-07 09:24] LABS: ANTI-Xa, UFH(UnfractionatedHep 0.48 IU/ml (0.3-0.7)
[2025-01-07] MEDS: POLYETHYLENE (MIRALAX) 17 GM PACK PO PRN (09:24)
--- NOTE | 2025-01-07 14:39 | Hospitalist Progress Note ---
Date of Service January 07, 2025 Assessment & Plan (1) DVT (deep venous thrombosis): (2) COVID toes: (3) Hyperbilirubinemia: Plan 79-year-old male PMHx HTN, OA, chronic radicular lumbar pain/low back pain, history of DVT on Xarelto, and BPH presenting for R leg swelling and discolo ration. Patient has been off his Xarelto for approximately 3 days for preprocedure reasons. His evaluation is without leukocytosis/leukopenia, stable H&H, plt at 118,; CMP no gross electrolyte abnormalities with exception of slightly elevated BUN/creatinine ratio 27.8 and a bilirubin of 2. UA without infection. He is COVID-positive and CXR reveals a possible R lobe developing pneumonia. Venous Doppler of the RLE is positive for a DVT, and aorta with runoff CTA shows occlusion of RICHI bilaterally and possible occlusion of R [employer] and peroneal arteries. Heparin drip is initiated in the ED. Patient without respiratory symptoms at time of admission. Further management for DVT. #RLE DVT Prior history on DVT, on Xarelto at baseline but had discontinued his Xarelto approximately 3 days [employer] as he was to have a procedure on 01/06/2025 for a pain pump/stimulator, ultimately canceled as he tested positive for COVID-19. ? Xarelto failure, has been off for ~ 3 days then with a very quick development of clot if so. Will consult pain management as well in terms of moving forward with pain stimulator placement and how that will look moving forward if patient unable to be off anticoagulation. - CBC stable H/H, plt 118; PT/INR pending - Hypercoag workup pending (deferred anti-thrombin III + lupus testing since on heparin) - RLE venous Doppler positive for DVT (R common femoral, R superficial femoral, R popliteal, superficial thrombus great saphenous vein) - Aorta with runoff CTA occlusion RICHI bilaterally, possible occlusion RPCA and peroneal arteries, moderate stenosis L peroneal artery - EKG pending - Continue to hold po Xarelto - Heparin drip initiated - continue - Vascular consulted - appreciate input + recs, likely clot evac thursday - Hematology consulted - appreciate input + recs - Pain management consulted - appreciate input + recs #COVID COVID 19 diagnosed earlier day of arrival, however patient was without symptoms. Reports ~ 1 week [employer] was with URI symptoms and cough (nonproductive), utilized at home nebulizer and felt better. Seen 4 day [employer], prescribed Z-pack at that time, has been taking as prescribed. Unknown sick contacts. Not hypoxic. - CBC without leukocytosis or leukopenia - CXR possible small early pneumonia at the R lung base - IS, O2 if needed - none at baseline - Isolation precautions - DuoNeb prn wheezing/SOB - D/c Z-pack - deferred further antibiotics at time of admission, no bacterial infection -- adjust as medically appropriate - outside benefit window for paxlovid, supoprtive cares #Hyperbilirubinemia Without abdominal pain, no vomiting. Still with gallbladder. - Bilirubin 2.0, LFTs otherwise WNL; pending direct bilirubin - Aorta w/ runoff CTA reveals hepatic cysts and fatty infiltration of liver, gallbladder is unremarkable w/o bile duct dilatation - Further imaging deferred at time of admission #T2DM H/o T2DM; At home regimen includes glipizide, no insulin use. Neuropathy as well, on gabapentin. - Glucose on arrival 209; A1c pending - SSI deferred at time of admission - continue home glipizide - Continue gabapentin - BSG ACHS - Adjust regimen as needed #HTN- Losartan - continue #Edema- Furosemide prn - hold at time of admission #BPH- Tamsulosin - continue Dispo: Admit, PCU VTE Prophylaxis: Heparin - treatment dose This document was dictated utilizing [employer]. Please excuse any grammatical errors that may be secondary to use of this software. Admission and Anticipated Discharge Date Admission Date: January 06, 2025 Subjective Doing okay this morning. No pain or discomfort in the legs. No shortness of breath. Eating breakfast just fine. Denies any significant generalized signs of illness, shortness of breath. Reports that he did meet with vascular surgery plan is to go in on Thursday for what he describes as a evacuation of clot. No other new events or concerns per patient, no issues per nursing staff Physical Exam Physical Exam: General: No acute distress Skin: Warm and dry Head: Normocephalic, atraumatic Eyes: PERRL, conjunctivae clear, sclera non-icteric ENT: External ear and ear canal without swelling; nose atraumatic; good dentition, tongue normal appearance, pharynx normal Neck: Supple, no LAD Cardio: RRR, no M/G/R, S1 and S2 normal Resp: No respiratory distress, Lungs CTA in all lobes bilaterally, no wheezes, rales, or rhonchi Abdomen: Soft, symmetric, nontender; No masses or hepatosplenomegaly; Bowel sounds normoactive MSK: No deformities; pulses palpable and equal; RLE edematous color normalized. Neuro: Awake, alert; Sensation intact bilaterally; CN grossly intact Psych: Appropriate mood and affect; good judgement and insight. Results & Data Results & Data Vital Signs (Past 12 Hours) Vital Signs Temp Pulse Pulse Resp BP Pulse Ox O2 Del Method 01/07/25 12:12 89 17 117/71 94 Room Air 01/07/25 07:13 37.3 C 85 20 141/83 H 95 Room Air 01/07/25 05:44 79 01/07/25 02:48 81 Laboratory Results 01/07/25 01/07/25 01/07/25 11:42 08:24 07:57 WBC RBC Hgb Hct MCV MCH MCHC RDW Std Deviation RDW Coeff of Diandra Plt Count MPV Immature Gran % (Auto) Neut % (Auto) Lymph % (Auto) [place] % (Auto) Eos % (Auto) Baso % (Auto) Neut # (Auto) Lymph # (Auto) [place] # (Auto) Eos # (Auto) Baso # (Auto) Immature Gran # (Auto) PT INR Heparin Anti-Xa, Unfract 0.48 Sodium Potassium Chloride Carbon Dioxide Anion Gap BUN Creatinine Est Cr Clr Drug Dosing eGFR BUN/Creatinine Ratio Glucose POC Glucose 212 H 218 H Calcium Total Bilirubin Direct Bilirubin AST ALT Alkaline Phosphatase Troponin I High Sens B-Natriuretic Peptide Total Protein Albumin Globulin Albumin/Globulin Ratio Urine Color Urine Appearance Urine pH Ur Specific [place] Urine Protein Urine Glucose (UA) Urine Ketones Urine Blood Urine Nitrite Urine Bilirubin Urine Urobilinogen Ur Leukocyte Esterase Urine WBC (Auto) Urine RBC (Auto) U Hyaline Cast (Auto) U Epithel Cells (Auto) Urine Bacteria (Auto) Urine Comment 01/07/25 01/07/25 01/06/25 01:59 00:51 22:53 WBC RBC Hgb Hct MCV MCH MCHC RDW Std Deviation RDW Coeff of Diandra Plt Count MPV Immature Gran % (Auto) Neut % (Auto) Lymph % (Auto) [place] % (Auto) Eos % (Auto) Baso % (Auto) Neut # (Auto) Lymph # (Auto) [place] # (Auto) Eos # (Auto) Baso # (Auto) Immature Gran # (Auto) PT 14.1 H INR 1.4 H Heparin Anti-Xa, Unfract 1.01 H* Sodium Potassium Chloride Carbon Dioxide Anion Gap BUN Creatinine Est Cr Clr Drug Dosing eGFR BUN/Creatinine Ratio Glucose POC Glucose 194 H Calcium Total Bilirubin Direct Bilirubin 0.3 H AST ALT Alkaline Phosphatase Troponin I High Sens B-Natriuretic Peptide Total Protein Albumin Globulin Albumin/Globulin Ratio Urine Color Urine Appearance Urine pH Ur Specific [place] Urine Protein Urine Glucose (UA) Urine Ketones Urine Blood Urine Nitrite Urine Bilirubin Urine Urobilinogen Ur Leukocyte Esterase Urine WBC (Auto) Urine RBC (Auto) U Hyaline Cast (Auto) U Epithel Cells (Auto) Urine Bacteria (Auto) Urine Comment 01/06/25 01/06/25 18:30 14:25 WBC 7.45 RBC 5.41 Hgb 16.4 Hct 48.9 MCV 90.4 MCH 30.3 MCHC 33.5 RDW Std Deviation 43.7 RDW Coeff of Diandra 13.2 Plt Count 118 L MPV 9.7 Immature Gran % (Auto) 0.7 Neut % (Auto) 68.3 Lymph % (Auto) 19.9 [place] % (Auto) 10.7 Eos % (Auto) 0.1 Baso % (Auto) 0.3 Neut # (Auto) 5.09 Lymph # (Auto) 1.48 [place] # (Auto) 0.80 H Eos # (Auto) 0.01 Baso # (Auto) 0.02 Immature Gran # (Auto) 0.05 PT INR Heparin Anti-Xa, Unfract Sodium 140 Potassium 4.7 Chloride 103 Carbon Dioxide 27 Anion Gap 10 BUN 30 H Creatinine 1.08 Est Cr Clr Drug Dosing Not Reportable eGFR 68.94 BUN/Creatinine Ratio 27.8 H Glucose 209 H POC Glucose Calcium 9.6 Total Bilirubin 2.0 H Direct Bilirubin AST 25 ALT 35 Alkaline Phosphatase 113 H Troponin I High Sens 7.0 B-Natriuretic Peptide 16 Total Protein 7.5 Albumin 4.2 Globulin 3.3 Albumin/Globulin Ratio 1.3 Urine Color Dark Yellow Urine Appearance Clear Urine pH 5.0 Ur Specific [place] > 1.045 H Urine Protein 2+ H Urine Glucose (UA) 1+ H Urine Ketones Trace H Urine Blood Negative Urine Nitrite Negative Urine Bilirubin 1+ H Urine Urobilinogen Negative Ur Leukocyte Esterase Negative Urine WBC (Auto) 0-5 Urine RBC (Auto) 0-2 U Hyaline Cast (Auto) 3-5 H U Epithel Cells (Auto) 3-5 H Urine Bacteria (Auto) None Seen Urine Comment PG Care Time/CCT Total # of Minutes Spent Total Time Spent with Patient: Total time spent is greater than 50% in coordination of care (as documented) at patient's floor/unit and/or counseling patient: Coding Level of Care Code 36645 SUB INP/OBS CARE 2/35MIN Diagnoses DVT (deep venous thrombosis) I82.409 COVID toes U07.1; R23.8 Hyperbilirubinemia E80.6
[2025-01-07] MEDS: glipiZIDE 5 MG TAB PO SCH (20:55)
--- NOTE | 2025-01-08 07:43 | Oncology Consultation ---
Date of Consultation January 08, 2025 Assessment & Plan (1) DVT (deep venous thrombosis): Plan -Although recurrent VTE could be due to holding Xarelto x 3 days, difficult to rule out Xarelto failure in this case as he indicates that he has had chronic lower extremity swelling as well. Given extent of thrombosis, plan for thrombectomy tomorrow would recommend considering switching from Xarelto to a different anticoagulant. Options include Coumadin (preferred), Lovenox or Eliquis . -Patient states that he had previously had hypercoagulable workup in the past which showed MTHFR mutation. Explained to him that this is no longer considered a cause of thrombosis. Does not require folic acid supplementation unless he has folate deficiency. History of Present Illness Reason for Consultation: Recurrent extensive DVT, Xarelto was held x 3 days Attending Physician: Kamron Burden MD History of Present Illness 79-year-old gentleman with history of right lower extremity DVT w for which he was on Xarelto. Patient states that Xarelto was held prior to nerve stimulator placement for about 3 to 4 days. Subsequently developed right lower extremity pain and swelling for which he presented to the ER. Ultrasound right lower extremity revealed DVT in the right common femoral vein, right superficial f emoral vein and right popliteal vein. CTA abdomen and pelvis on 01/06/2025 revealed occlusion of the RICHI bilaterally with possible occlusion of right [employer] and peroneal arteries, bilateral common iliac and right external iliac vein stents. 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 He indicates he was seen by hematology several years ago who obtained hypercoagulable workup which revealed what sounds like MTHFR mutation but no other abnormalities. Was placed on folic acid thereafter.He was evaluated by vascular surgery who plans for percutaneous venous thrombectomy tomorrow. Allergies Allergy/AdvReac Type Severity Reaction Status Date / Time Penicillins Allergy Mild Swelling Verified 01/06/25 11:35 of the Eye Sulfa (Sulfonamide Allergy Mild swelling Verified 01/06/25 11:35 Antibiotics) morphine AdvReac Intermediate dry heaves Verified 01/06/25 11:35 empagliflozin AdvReac Mild Nausea Verified 01/06/25 11:35 [From Jardiance] metformin AdvReac Mild Heartburn Verified 01/06/25 11:35 semaglutide [From Ozempic] AdvReac Mild Nausea Verified 01/06/25 11:35 Home Medications Medication Instructions Recorded Confirmed Type folic acid 800 mcg tablet 0.8 mg PO HS 08/16/24 01/06/25 History furosemide 20 mg tablet (Lasix) 20 mg PO Q OTHER DAY PRN Edema 08/16/24 01/06/25 History rivaroxaban 20 mg tablet (Xarelto) 20 mg PO QPM 08/16/24 01/06/25 History tamsulosin 0.4 mg capsule 0.4 mg PO QPM 08/16/24 01/06/25 History gabapentin 100 mg capsule 100 mg PO BID 11/07/24 01/06/25 History glipizide 10 mg tablet 10 mg PO QPM 11/07/24 01/06/25 History cholecalciferol (vitamin D3) 125 125 mcg PO HS 12/26/24 01/06/25 History mcg (5,000 unit) tablet (Vitamin D3) fluticasone propionate 50 1 spray intranasal HS 12/26/24 01/06/25 History mcg/actuation nasal spray,suspension lecithin 1,200 mg capsule 2,400 mg PO QAM 12/26/24 01/06/25 History vitamin E 268 mg (400 unit) capsule 2 cap PO QAM 12/26/24 01/06/25 History losartan 25 mg tablet 25 mg PO HS 01/06/25 01/06/25 History Patient History Medical History Hyperthyroidism No meds PCP monitoring Type II diabetes mellitus Per PCP records CHF (congestive heart failure) EF 45% per 2009 ECHO Most recent ECHO May 2022 shows EF 55-60% per cardio records Paroxysmal A-fib on Xarelto Hypertension Chronic back pain On anticoagulant therapy xarelto daily d/t hx of dvt History of peripheral vascular disease History of DVT of lower extremity (02/2014) reason for xarelto--happened after stent placement in right iliac artery History of TMJ syndrome pt states it was "many years ago"--it resolved after "seeing dentist who had him do exercises that cured it" Hepatomegaly Nontoxic goiter Venous insufficiency Parathyroid disease Gout Fatty liver Esophagitis Kidney stones hx Asbestosis History of BPH Surgical History History of anal fistulotomy History of colonoscopy History of esophagogastroduodenoscopy (EGD) Status post scrotal varicocelectomy right History of procedure for peripheral vascular disease before 2019 was last procedure--x4 on right iliac artery/x1 on left History of tooth extraction History of nasal septoplasty Status post biopsy of thyroid gland H/O parathyroidectomy with left side of thyroid removal at same time H/O hemorrhoidectomy History of ankle surgery left ankle History of tonsillectomy History of surgery on arm right arm fracture Family History Other No family history of adverse response to anesthesia Social History Smoking Status: Never smoker Second Hand Exposure: No; Do You Dip or Chew Tobacco: No; Hx Alcohol Use: No Hx Substance Use: No Preferred Language: Paraguayan Communication Ability: Effective Visual Impairment: No Limitations Funeral Assistant Required: No Beliefs That Will Affect Care: None marital status: Single Current Living Situation: Alone 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
[2025-01-08 07:50] LABS: ANTI-Xa, UFH(UnfractionatedHep 0.40 IU/ml (0.3-0.7)
--- NOTE | 2025-01-08 10:40 | Vascular Surgery Progress Note ---
Date of Service January 08, 2025 Assessment & Plan (1) DVT (deep venous thrombosis): Plan: He believes he can lay prone. Given the ongoing symptoms will plan for percutaneous venous thrombectomy tomorrow morning. This will be done with him lying prone. He feels confident and comfortable that he can tolerate laying prone for the procedure, but I will have a low threshold to terminate the procedure should he develop any respiratory compromise. Assuming he tolerates laying prone for the procedure tomorrow, it might be worth considering getting his pain management procedure done during this hospitalization when we can manage his anticoagulation given the acuity of the DVT after holding his DOAC as an outpatient for ~3 days. Will discuss with primary team and of course defer this decision to them and the interventional pain team. Risks/goals/alternatives discussed with patient who understands the seriousness of the situation and chooses to proceed. Tentatively scheduled for tomorrow (Thursday) around 9/10am. Please make NPO after midnight. 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 Admission and Anticipated Discharge Date Admission Date: January 06, 2025 Subjective Subjectively improved per patient. He has chronic right lower extremity. The thigh is almost back to baseline but the calf remains swollen relative to usual baseline. Physical Exam Physical Exam: Right leg looks a bit less swollen particularly at the thigh to my exam. No tenderness. Both feet warm. I can now feel a weak dp pulse in the right foot due to the decreased swelling. Results & Data Vital Signs (Past 12 Hours) Vital Signs Temp Pulse Pulse Resp BP Pulse Ox O2 Del Method 01/08/25 07:03 37.6 C H 74 18 146/78 H 94 Room Air 01/08/25 07:00 Room Air 01/08/25 07:00 36.9 C 01/08/25 05:33 73 01/08/25 03:54 37.5 C 77 20 146/76 H 94 Room Air 01/07/25 23:15 86 01/07/25 23:00 36.6 C 80 18 135/79 96 Room Air PG Care Time/CCT Total # of Minutes Spent Total Time Spent with Patient: Total time spent is greater than 50% in coordination of care (as documented) at patient's floor/unit and/or counseling patient:
--- NOTE | 2025-01-08 11:44 | Electrocardiogram Report ---
Test Reason : Blood Pressure : */* mmHG Vent. Rate : 83 BPM Atrial Rate : 83 BPM P-R Int : 186 ms QRS Dur : 78 ms QT Int : 376 ms P-R-T Axes : 11 -41 35 degrees QTcB Int : 441 ms Normal sinus rhythm Left axis deviation Cannot rule out Inferior infarct (cited on or before 08-Dec-2024) Abnormal ECG When compared with ECG of 08-Dec-2024 14:44, Questionable change in initial forces of Inferior leads Confirmed by Jon Vance [id number]) on 01/08/2025 11:44:09 AM Referred By: REFERRED SELF Confirmed By: Jon Vance
--- NOTE | 2025-01-08 12:51 | Hospitalist Progress Note ---
Date of Service January 08, 2025 Assessment & Plan (1) DVT (deep venous thrombosis): (2) COVID toes: (3) Hyperbilirubinemia: Plan 79-year-old male PMHx HTN, OA, chronic radicular lumbar pain/low back pain, history of DVT on Xarelto, and BPH presenting for R leg swelling and discolo ration. Patient has been off his Xarelto for approximately 3 days for preprocedure reasons. His evaluation is without leukocytosis/leukopenia, stable H&H, plt at 118,; CMP no gross electrolyte abnormalities with exception of slightly elevated BUN/creatinine ratio 27.8 and a bilirubin of 2. UA without infection. He is COVID-positive and CXR reveals a possible R lobe developing pneumonia. Venous Doppler of the RLE is positive for a DVT, and aorta with runoff CTA shows occlusion of RICHI bilaterally and possible occlusion of R PAPER ROLLER and peroneal arteries. Heparin drip is initiated in the ED. Patient without respiratory symptoms at time of admission. Further management for DVT. #RLE DVT Prior history on DVT, on Xarelto at baseline but had discontinued his Xarelto approximately 3 days [employer] as he was to have a procedure on 01/06/2025 for a pain pump/stimulator, ultimately canceled as he tested positive for COVID-19. ? Xarelto failure, has been off for ~ 3 days then with a very quick development of clot if so. Will consult pain management as well in terms of moving forward with pain stimulator placement and how that will look moving forward if patient unable to be off anticoagulation. - CBC stable H/H, plt 118; PT/INR pending - Hypercoag workup pending (deferred anti-thrombin III + lupus testing since on heparin) - RLE venous Doppler positive for DVT (R common femoral, R superficial femoral, R popliteal, superficial thrombus great saphenous vein) - Aorta with runoff CTA occlusion RICHI bilaterally, possible occlusion RPCA and peroneal arteries, moderate stenosis L peroneal artery - Continue to hold po Xarelto - continue heparin gtt - See Vacscular surgery note, planned clot evac tomorrow AM - Hematology consulted - appreciate input + recs - Pain management consulted - appreciate input + recs - Resume heparin after evacuation, coordinate with Dr Swartz of Ortho/Spine as below #COVID COVID 19 diagnosed earlier day of arrival, however patient was without symptoms. Reports ~ 1 week [employer] was with URI symptoms and cough (nonproductive), utilized at home nebulizer and felt better. Seen 4 day [employer], prescribed Z-pack at that time, has been taking as prescribed. Unknown sick contacts. Not hypoxic. - CBC without leukocytosis or leukopenia - CXR possible small early pneumonia at the R lung base - IS, O2 if needed - none at baseline - Isolation precautions - DuoNeb prn wheezing/SOB - Likely late positive test secondary to mild/resolved course #Chronic Back Pain - pending spinal stimulator implant with Dr. Swartz. Unfortunately off his DO AC he had a clot as above. - Will continue heparin after his clot evacuation tomorrow morning, coordinate with orthospine to see if we can continue the heparin and complete his spinal stimulator implant during this DOAC holiday - [place] sent to Dr Swartz 01/08 #Hyperbilirubinemia Without abdominal pain, no vomiting. Still with gallbladder. - Bilirubin 2.0, LFTs otherwise WNL; pending direct bilirubin - Aorta w/ runoff CTA reveals hepatic cysts and fatty infiltration of liver, gallbladder is unremarkable w/o bile duct dilatation - Further imaging deferred at time of admission #T2DM H/o T2DM; At home regimen includes glipizide, no insulin use. Neuropathy as well, on gabapentin. - Glucose on arrival 209; A1c pending - SSI deferred at time of admission - continue home glipizide - Continue gabapentin - BSG ACHS - Adjust regimen as needed #HTN- Losartan - continue #Edema- Furosemide prn - hold at time of admission #BPH- Tamsulosin - continue Dispo: Admit, PCU VTE Prophylaxis: Heparin - treatment dose Admission and Anticipated Discharge Date Admission Date: January 06, 2025 Subjective Feeling pretty good this morning. No shortness of breath at all. No generalized signs of illness to suggest active and ongoing COVID. Very good discussion with Dr. Pierre of vascular this morning. Plan for evacuation tomorrow morning. Also discussed the coordination of possible spinal implant with Dr. Swartz as this was part of the initial plan however clot when he was on his DOAC vacation complicates the issue. If he can tolerate the clot evacuation tomorrow will task Dr. Swartz for consideration of continuing heparin and scheduling his spinal stimulator implant while he is here in the hospital Versus likely readmission with several days of heparin prior to procedure at a later time. Patient very much on board with this plan Physical Exam Physical Exam: General: No acute distress Skin: Warm and dry Head: Normocephalic, atraumatic Eyes: PERRL, conjunctivae clear, sclera non-icteric ENT: External ear and ear canal without swelling; nose atraumatic; good dentition, tongue normal appearance, pharynx normal Neck: Supple, no LAD Cardio: RRR, no M/G/R, S1 and S2 normal Resp: No respiratory distress, Lungs CTA in all lobes bilaterally, no wheezes, rales, or rhonchi Abdomen: Soft, symmetric, nontender; No masses or hepatosplenomegaly; Bowel sounds normoactive MSK: No deformities; pulses palpable and equal; RLE edematous color normalized. Neuro: Awake, alert; Sensation intact bilaterally; CN grossly intact Psych: Appropriate mood and affect; good judgement and insight. Results & Data Results & Data Vital Signs (Past 12 Hours) Vital Signs Temp Pulse Pulse Resp BP Pulse Ox O2 Del Method 01/08/25 11:49 37.1 C 79 18 151/81 H 97 Room Air 01/08/25 07:03 37.6 C H 74 18 146/78 H 94 Room Air 01/08/25 07:00 Room Air 01/08/25 07:00 36.9 C 01/08/25 05:33 73 01/08/25 03:54 37.5 C 77 20 146/76 H 94 Room Air Laboratory Results 01/08/25 01/07/25 06:54 16:24 Heparin Anti-Xa, Unfract 0.40 POC Glucose 173 H PG Care Time/CCT Total # of Minutes Spent Total Time Spent with Patient: Total time spent is greater than 50% in coordination of care (as documented) at patient's floor/unit and/or counseling patient: Coding Level of Care Code 28712 SUB INP/OBS CARE 2/35MIN Diagnoses DVT (deep venous thrombosis) I82.409 COVID toes U07.1; R23.8 Hyperbilirubinemia E80.6
[2025-01-08] MEDS ORDERED: glipiZIDE 5 MG TAB PO SCH (17:00)
[2025-01-09 07:40] LABS: ANTI-Xa, UFH(UnfractionatedHep 0.38 IU/ml (0.3-0.7)
--- NOTE | 2025-01-09 08:15 | Vascular Surgery Progress Note ---
<Statement entered by Artis Shi MD - 01/09/25 08:52> Plan for right lower extremity percutaneous venous thrombectomy today. Date of Service January 09, 2025 Assessment & Plan (1) DVT (deep venous thrombosis): Plan: Given the ongoing symptoms will plan for percutaneous venous thrombectomy this morning. This will be done with him lying prone. He feels confident and comfortable that he can tolerate laying prone for the procedure, but we will have a low threshold to terminate the procedure should he develop any respiratory compromise. Assuming he tolerates laying prone for the procedure tomorrow, it might be worth considering getting his pain management procedure done during this hospitalization when we can manage his anticoagulation given the acuity of the DVT after holding his DOAC as an outpatient for ~3 days. Will discuss with primary team and of course defer this decision to them and the interventional pain team. Risks/goals/alternatives discussed with patient who understands the seriousness of the situation and chooses to proceed. Please keep him NPO this morning. Can continue IV heparin until he arrives in the laboratory asst. Admission and Anticipated Discharge Date Admission Date: January 06, 2025 Subjective leg pain improved on heparin but still with significant swelling. Tolerating heparin, no bleeding issues. No SOB or coughing. Vitals stable Physical Exam Physical Exam: well developed, well nourished, in no distress. Normal respiratory effort. RLE with non-pitting edema. Skin is warm and sensation intact. Results & Data Vital Signs (Past 12 Hours) Vital Signs Temp Pulse Pulse Resp BP BP Pulse Ox 01/09/25 07:24 36.9 C 73 16 153/96 H 97 01/09/25 02:48 37.1 C 81 18 157/81 H 95 01/08/25 23:13 74 01/08/25 23:05 37.2 C 79 16 143/83 H 95 01/08/25 20:29 O2 Del Method 01/09/25 07:24 Room Air 01/09/25 02:48 Room Air 01/08/25 23:13 01/08/25 23:05 Room Air 01/08/25 20:29 Room Air PG Care Time/CCT Total # of Minutes Spent Total Time Spent with Patient: Total time spent is greater than 50% in coordination of care (as documented) at patient's floor/unit and/or counseling patient:
[2025-01-09] MEDS: SODIUM CHLORIDE 0.65% NA SOLN 45 ML (OCEAN) PRN (09:08)
--- NOTE | 2025-01-09 09:57 | Pre Anesthesia Assessment ---
Date of Service January 09, 2025 Pre Sedation Assessment Vital Signs Temp Pulse Pulse Pulse Resp BP BP 01/09/25 09:30 73 18 148/85 H 01/09/25 07:24 36.9 C 73 16 153/96 H 01/09/25 05:44 71 01/09/25 02:48 37.1 C 81 18 157/81 H 01/08/25 23:13 74 01/08/25 23:05 37.2 C 79 16 143/83 H 01/08/25 20:29 01/08/25 19:25 37.3 C 75 16 155/85 H 01/08/25 15:44 37 C 76 21 143/80 H 01/08/25 13:02 79 01/08/25 11:49 37.1 C 79 18 151/81 H Pulse Ox O2 Del Method 01/09/25 09:30 93 Room Air 01/09/25 07:24 97 Room Air 01/09/25 05:44 01/09/25 02:48 95 Room Air 01/08/25 23:13 01/08/25 23:05 95 Room Air 01/08/25 20:29 Room Air 01/08/25 19:25 96 Room Air 01/08/25 15:44 97 Room Air 01/08/25 13:02 01/08/25 11:49 97 Room Air Cardiovascular RRR, no murmur, no edema Respiratory normal respiratory effort, lungs clear to auscultation Pre-Sedation Airway Assessment Smoking Status: Never smoker Short, Thick Neck: No Thyromental Distance: > or= 3.5 Finger Breadths Oral Cavity: + WNL Mallampati Class: III ASA: ASA3 NPO Status Date of Last Intake of Fluids: 01/09/25 Time of Last Intake of Fluids: 06:30 Last Oral Intake of Fluids Comment: sips of water with meds Date of Last Intake of Solid Food: 01/08/25 Time of Last Intake of Solid Foods: 20:00 Procedure Planning Contraindications for Sedation: none Notes The planned sedation has been discussed with the patient. Informed Consent was obtained. I have identified the patient, determined the appropriateness of sedation and have assessed the patient immediately prior to the procedure. All medicine(s) and interventions are by my order. Discussed with patient his current COVID (+) status. He is asymptomatic from this. Will plan to proceed with him in prone position but low threshold to abort should his pulmonary status deteriorate.
[2025-01-09] MEDS: LIDOCAINE 1% LOCAL 20 ML VIAL ONE (11:30)
[2025-01-09] MEDS: HEPARIN (PORCINE) 1000 UNIT/ML 10 ML (CATH LAB USE ONLY) ONE (11:30)
[2025-01-09] MEDS: MIDAZOLAM HCL 1 MG/ML 2ML VIAL ONE (11:31)
[2025-01-09] MEDS: OPTIRAY 350 ONE (11:31)
--- NOTE | 2025-01-09 11:35 | Orthopedic Progress Note ---
Date of Service January 09, 2025 Assessment & Plan (1) Chronic low back pain: Plan: This case has been reviewed with Dr. Swartz. At this point in time we are going to hold off on any further surgical intervention regarding his spinal cord stimulator during this hospital stay. Will see him in the office in few weeks and review this with him as well as future plans. Will proceed with SCS on an elective basis when he is medically optimized and stable for such a procedure. Admission and Anticipated Discharge Date Admission Date: January 06, 2025 Subjective Patient had a surgery/spinal cord stimulator scheduled for January 06 which was canceled due to a positive COVID test and possible pneumonia on chest x-ray. He was ultimately admitted via the ER with a right lower extremity swelling and found to have a DVT. He is typically on anticoagulation which has been held preoperatively for his surgery that was scheduled on January 06. This morning he is beginning to be taken to the operative suite with Dr. Shi for a right lower extremity thrombectomy. There is a question on if we should proceed with his spinal cord stim procedure during this hospital stay Review of Systems Review of Systems: All systems reviewed & are unremarkable except as noted in HPI & below Results & Data Vital Signs (Past 12 Hours) Vital Signs Temp Pulse Pulse Pulse Resp BP BP 01/09/25 09:30 73 18 148/85 H 01/09/25 07:24 36.9 C 73 16 153/96 H 01/09/25 05:44 71 01/09/25 02:48 37.1 C 81 18 157/81 H Pulse Ox O2 Del Method 01/09/25 09:30 93 Room Air 01/09/25 07:24 97 Room Air 01/09/25 05:44 01/09/25 02:48 95 Room Air (1) Chronic low back pain Back pain laterality: bilateral Sciatica laterality: sciatica of left side Sciatica presence: with sciatica Qualified Code(s): G89.29 - Other chronic pain; M54.42 - Lumbago with sciatica, left side
--- NOTE | 2025-01-09 11:37 | Post Anesthesia Assessment ---
Date of Service January 09, 2025 Post Sedation Assessment Vital Signs Temp Pulse Pulse Pulse Resp BP BP 01/09/25 09:30 73 18 148/85 H 01/09/25 07:24 36.9 C 73 16 153/96 H 01/09/25 05:44 71 01/09/25 02:48 37.1 C 81 18 157/81 H 01/08/25 23:13 74 01/08/25 23:05 37.2 C 79 16 143/83 H 01/08/25 20:29 01/08/25 19:25 37.3 C 75 16 155/85 H 01/08/25 15:44 37 C 76 21 143/80 H 01/08/25 13:02 79 01/08/25 11:49 37.1 C 79 18 151/81 H Pulse Ox O2 Del Method 01/09/25 09:30 93 Room Air 01/09/25 07:24 97 Room Air 01/09/25 05:44 01/09/25 02:48 95 Room Air 01/08/25 23:13 01/08/25 23:05 95 Room Air 01/08/25 20:29 Room Air 01/08/25 19:25 96 Room Air 01/08/25 15:44 97 Room Air 01/08/25 13:02 01/08/25 11:49 97 Room Air Recovery Score Activity: Moves 4 extremities Respiration: Deep Breath/Cough Circulation: +/-20% PreAnes Value Consciousness: Fully Awake Oxygen Saturation: > 92% On Room Air Discharge Sedation Level of Care: Phase I Post Sedation Plan On clinical assessment, the patient appears to have tolerated the sedation without complications. Patient is recovering as anticipated. Patient will continue to be monitored by nursing and may be discharged when sedation discharge criteria are met per below protocol. Upon Completions of procedure up to 15 minutes continue every 5 minute vital signs and the P.A.R. score; then discharge to a Phase I or Fast Track to Phase II per the following guidelines: * Discharge Patient to appropriate Phase II area if PAR is 8 or greater or return to pre- procedure baseline. The post - procedure orders will be as directed. * If PAR score is less than 8 or not return to pre-procedure baseline then patient will follow Phase I monitoring till PAR is reached for Phase II. The Phase I may be done in procedure room or may call to secure a Phase I area. * If naloxone or flumazenil are used for reversal, hold in Phase I for continued monitoring from when last reversal dose was given for a minimum of 60 minutes or longer pending the nurse and/or physician discretion of patient condition before discharge to Phase II. Please call the Sedation Physician to re-evaluate and complete post-note for discharge to Phase II area. Do NOT discharge from procedure sedation or Phase 1 until post- sedation evaluat ion note is complete by procedure /sedation MD Sedation Discharge Instructions to be given to the patient at discharge to home.
--- NOTE | 2025-01-09 11:51 | Endovascular Procedure Note ---
[facility] Endovascular Procedure Rpt Pre & Post Diagnosis Operation Date: 01/09/25 10:00 Symptomatic right lower extremity deep venous thrombosis. I identified the patient and participated in the time-out.: Yes Procedure Operation Date: 01/09/25 10:00 Actual Procedures p SC Venous [facility] Thrombectomy - Artis Shi MD Intravascular ultrasound of vena cava, right common and external iliac vein and right femoral vein Ultrasound-guided access to right popliteal vein Catheterization of vena cava and right lower extremity diagnostic venography CPT 89196 in addition to those noted in coding section. Surgeon Artis Shi MD [employer] Everardo Bhakta RT Estimated Blood Loss 100 Findings Consistent with Post-Op Diagnosis Anesthesia Type RN Sedation Radiation Exposure (mGv) Radiation (mGy): 1,453 Contrast Contrast: 50cc Complications none Disposition Accompanied Patient To Recovery: Yes Disposition: [employer] Indications 79-year-old gentleman with previously placed right and left iliac venous stents at another institution. Presents with acute onset right lower extremity swelling and evidence of femoral-popliteal deep venous thrombosis on ultrasound. He is brought to the cardiac [facility] for venography and possible intervention. Risk goals and alternatives were discussed with the patient understands the seriousness of the situation and chooses to proceed. Description of Procedure A timeout was performed and the patient was identified the procedure verified. Conscious sedation was administered under my direction. The patient was laid prone with pressure points checked and padded. Appropriate monitoring devices were placed. The posterior aspect of the right knee was then prepped and draped usual sterile fashion. The popliteal vein was identified with ultrasound and accessed with a micropuncture needle under ultrasound guidance. A mandrel wire was inserted and a microsheath inserted. Contrast venography confirmed positioning within the venous system. The femoral and popliteal veins appeared free of any significant thrombus. I upsized to a 7 Tajik sheath and using a angled glide wire and catheter I catheterized the vena cava under fluoroscopic control. I upsized to a 16 Tajik sheath after using serial dilators. The patient was systemically anticoagulated with heparin to achieve a therapeutic activated clotting time. An intravascular ultrasound catheter was then inserted demonstrating a patent femoral and popliteal artery segment. There was a small tongue of thrombus in the femoral vein suggesting that the patient had previous thrombus there. As I navigated into the previously placed iliac stent there was significant thrombus noted within the mid and proximal portions of the stent suggesting that the deep venous thrombosis identified on preoperative ultrasound had embolized into the iliac vein stent. Upon passing the intravascular ultrasound catheter into the vena cava there was no evidence of thrombus. The IVUS catheter was then withdrawn. The penumbra lightning flash catheter was then inserted into the distal aspect of the iliac vein stent and passed with several passes up into the vena cava with aspiration of a significant amount of thrombus. This was done until good flow was noted. I then withdrew the penumbra catheter back into the femoral vein to extract the thrombus that had been noticed on intravascular ultrasound. Completion venogram demonstrated some retained thrombus in the medial aspect of the right iliac stent proximally and so the catheter was reinserted and aspiration venous thrombectomy was again performed of this area. Follow-up venography revealed much better flow with an open flow channel. There did appear to be some mild compression of the right iliac vein stent in the cava from the contralateral stent but the flow was quite good and given the risk of compromising flow in the left iliac vein stent I chose not to intervene such as with angioplasty at this point. Intravascular ultrasound was then again performed demonstrating significant improvement in the flow channel throughout. The procedure was terminated at this point. The patient maintained excellent pulmonary dynamics and oxygenation throughout. We did give him somewhat less sedation than typical given his underlying COVID diagnosis and the concern about his ability to lay prone. A pursestring suture was placed around the exit site of the popliteal access in the sheath was removed with pressure held to achieve hemostasis. The patient was taken the recovery area in stable condition having tolerated the procedure well without immediate complication. 50 cc IV contrast, 1453 mGy. 25 mcg fentanyl. Conscious sedation start 1011, end 1128 I attest to the content of the Intraoperative Record and any orders documented therein. Any exceptions are noted below. Vascular Charges Angiography/Venography Procedure 1: Angiography/Venography charges: [id number] Venography, extremity, unilateral, radiological S&I Procedure 2: Angiography/Venography charges: [id number] Introduction of catheter, superior or inferior vena cava Procedure 3: Angiography/Venography charges: [id number] Venography, caval, inferior, w serialography, radiological S&I Additional Services Procedure 1: Additional Services Charges: 40388 Ultrasound guidance - vascular access Procedure 2: Additional Services Charges: 70416 Moderate sedation initial 15 min Procedure 3: Additional Services Charges: 37474 Moderate sedation, each additional 15 min Procedure 4: Additional Services Charges: 26011 Intravascular ultrasound; initial noncoronary vessel Procedure 5: Additional Services Charges: 80415 IVUS - Each additional noncoronary vessel
--- NOTE | 2025-01-09 12:21 | Hospitalist Progress Note ---
Date of Service January 09, 2025 Assessment & Plan (1) DVT (deep venous thrombosis): (2) COVID toes: (3) Hyperbilirubinemia: (4) Pneumonia due to COVID-19 virus: (5) (HFpEF) heart failure with preserved ejection fraction: Plan 79-year-old male PMHx HTN, OA, chronic radicular lumbar pain/low back pain, history of DVT on Xarelto, and BPH presenting for R leg swelling and discoloration. Patient has been off his Xarelto for approximately 3 days for preprocedure reasons. His evaluation is without leukocytosis/leukopenia, stable H&H, plt at 118,; CMP no gross electrolyte abnormalities with exception of slightly elevated BUN/creatinine ratio 27.8 and a bilirubin of 2. UA without infection. He is COVID-positive and CXR reveals a possible R lobe developing pneumonia. 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 Heparin drip is initiated in the ED. Patient without respiratory symptoms at time of admission. Further management for DVT. 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 ? Xarelto failure, has been off for ~ 3 days then with a very quick development of clot if so. - RLE venous Doppler positive for DVT (R common femoral, R superficial femoral, R popliteal, superficial thrombus great saphenous vein) - Aorta with runoff CTA occlusion RICHI bilaterally, possible occlusion RPCA and peroneal arteries, moderate stenosis L peroneal artery -He is now s/p mechanical thrombectomy - CBC stable H/H, plt 118; PT/INR pending - Hypercoag workup pending (deferred anti-thrombin III + lupus testing since on heparin) - Resume Heparin by weight today by 1300 per vascular - Upon discharge, resume po Xarelto - Per Ortho spine, no plans to insert pain stimulator during this admission due to COVID PNA, they will plan outpatient insertion in a month #COVID Pt does have possible early COVID pneumonia COVID 19 diagnosed earlier day of arrival, however patient was without symptoms. 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 Seen 4 day ENERGY OPERATIONS VICE PRESIDENT, prescribed Z-pack at that time, has been taking as prescribed. Unknown sick contacts. Not hypoxic. - CBC without leukocytosis or leukopenia - CXR possible small early pneumonia at the R lung base - IS, O2 if needed - none at baseline - Isolation precautions - DuoNeb prn wheezing/SOB #Chronic Back Pain - pending spinal stimulator implant with Dr. Swartz, likely to be done outpatient due to COVID PNA -Unfortunately off his DO AC he had a clot as above. -His pain stimulator will be implanted non urbently outpatient due to his COVID PNA -Per Ortho spine, likely in a month #Hyperbilirubinemia Without abdominal pain, no vomiting. Still with gallbladder. - Bilirubin 2.0, LFTs otherwise WNL; pending direct bilirubin - Aorta w/ runoff CTA reveals hepatic cysts and fatty infiltration of liver, gallbladder is unremarkable w/o bile duct dilatation - Further imaging deferred at time of admission #T2DM H/o T2DM; At home regimen includes glipizide, no insulin use. Neuropathy as w ell, on gabapentin. - Glucose on arrival 209; A1c pending - SSI deferred at time of admission - continue home glipizide - Continue gabapentin - BSG ACHS - Adjust regimen as needed #HTN- Losartan - continue #CHFwpEF Last echo showes EF 55-60% - continue Furosemide prn #BPH- Tamsulosin - continue Dispo: Admit, PCU VTE Prophylaxis: Heparin - treatment dose Admission and Anticipated Discharge Date Admission Date: January 06, 2025 Results & Data Results & Data Vital Signs (Past 12 Hours) Vital Signs Temp Pulse Pulse Pulse Resp BP BP 01/09/25 12:00 74 16 176/86 H 01/09/25 11:45 76 18 152/81 H 01/09/25 09:30 73 18 148/85 H 01/09/25 07:24 98.5 F 73 16 153/96 H 01/09/25 05:44 71 01/09/25 02:48 98.8 F 81 18 157/81 H Pulse Ox O2 Del Method 01/09/25 12:00 93 Room Air 01/09/25 11:45 93 Room Air 01/09/25 09:30 93 Room Air 11/17/25 07:24 97 Room Air 01/09/25 05:44 01/09/25 02:48 95 Room Air PG Care Time/CCT Total # of Minutes Spent Total Time Spent with Patient: Total time spent is greater than 50% in coordination of care (as documented) at patient's floor/unit and/or counseling patient: Coding Level of Care Code 50286 SUB INP/OBS CARE 2/35MIN Diagnoses DVT (deep venous thrombosis) I82.409 COVID toes U07.1; R23.8 Hyperbilirubinemia E80.6 Pneumonia due to COVID-19 virus U07.1; J12.82 (HFpEF) heart failure with preserved ejection fraction I50.30 Time Spent (min) 35
[2025-01-09 14:00] LABS: ANTI-Xa, UFH(UnfractionatedHep 0.46 IU/ml (0.3-0.7)
[2025-01-09 14:02] LABS: Partial Thromboplastin Time 63 Seconds (21-31)
--- NOTE | 2025-01-09 16:40 | Vascular Surgery Progress Note ---
Date of Service January 09, 2025 Assessment & Plan (1) DVT (deep venous thrombosis): Plan: PPD 0 s/p Right iliac vein mechanical thrombectomy, with much improved flow channel throughout the right iliac artery and previous stent. He tolerated procedure well and heparin has been restarted, with no bleeding complications at this time. As he did tolerate lying in the prone position for procedure today, for over 90 minutes, it might be worth considering getting his pain management procedure done during this hospitalization when we can manage his anticoagulation given the acuity of the DVT, as opposed to holding his DOAC as an outpatient for ~3 days, however will defer this decision to primary and the interventional pain team. Admission and Anticipated Discharge Date Admission Date: January 06, 2025 Subjective underwent RLE venous mechanical thrombectomy earlier today, with clot burden noted to be within right iliac stent. Post procedure imaging demonstrated improved flow channel throughout the stent. Popliteal sheath was pulled and purse string suture placed, with manual pressure held. Heparin restarted at 1330 this afternoon. He has done well since procedure. His right popliteal dressing does have old blood on it. In talking with nursing, no active bleeding noted at this time. He has been up and walked to the bathroom without difficulty. He denies any pain in his legs at this time. Physical Exam Physical Exam: well developed, well nourished, in no distress, sitting up in bed. Normal respiratory effort. RLE with purplish in color, unchanged from this morning, with unchanged non-pitting edema. Skin is warm and sensation intact. Right popliteal fossa dressing with dried blood, no active bleeding noted. No hematoma appreciated. Results & Data Vital Signs (Past 12 Hours) Vital Signs Temp Pulse Pulse Pulse Resp BP BP 01/09/25 15:58 36.7 C 75 18 153/84 H 01/09/25 14:55 36.6 C 70 20 159/82 H 01/09/25 14:18 36.7 C 77 18 152/83 H 01/09/25 13:26 36.9 C 77 18 150/88 H 01/09/25 13:00 73 01/09/25 12:59 36.6 C 76 18 151/88 H 01/09/25 12:32 37.0 C 74 18 154/84 H 01/09/25 12:16 36.9 C 75 16 150/88 H 01/09/25 12:15 73 01/09/25 12:00 74 16 176/86 H 01/09/25 11:45 76 18 152/81 H 01/09/25 09:30 73 18 148/85 H 01/09/25 07:24 36.9 C 73 16 153/96 H 01/09/25 05:44 71 Pulse Ox O2 Del Method 01/09/25 15:58 93 Room Air 01/09/25 14:55 96 Room Air 01/09/25 14:18 97 Room Air 01/09/25 13:26 97 Room Air 01/09/25 13:00 01/09/25 12:59 94 Room Air 01/09/25 12:32 96 Room Air 01/09/25 12:16 97 Room Air 01/09/25 12:15 01/09/25 12:00 93 Room Air 01/09/25 11:45 93 Room Air 01/09/25 09:30 93 Room Air 01/09/25 07:24 97 Room Air 01/09/25 05:44 PG Care Time/CCT Total # of Minutes Spent Total Time Spent with Patient: Total time spent is greater than 50% in coordination of care (as documented) at patient's floor/unit and/or counseling patient:
[2025-01-09 22:04] LABS: ANTI-Xa, UFH(UnfractionatedHep 0.34 IU/ml (0.3-0.7)
[2025-01-10 07:08] LABS: ANTI-Xa, UFH(UnfractionatedHep 0.36 IU/ml (0.3-0.7)
--- NOTE | 2025-01-10 11:00 | Vascular Surgery Progress Note ---
Date of Service January 10, 2025 Assessment & Plan (1) DVT (deep venous thrombosis): Plan: PPD 1 s/p Right iliac vein mechanical thrombectomy, with much improved flow channel throughout the right iliac artery and previous stent. He tolerated procedure well and has been tolerating his heparin drip, which was restarted yesterday afternoon, with no bleeding issues identified. As interventional pain procedure will be scheduled out, OK to transition back to Xarelto from vascular perspective. Would recommend that should he need to come off of Xarelto for procedures, such as his spinal cord stimulator, that he bridge with Lovenox. Recommend following up with PCP for stitch removal in one week, given he lives 3 hours away Follow up with vascular surgery in 3 weeks to go over records and make plans for any potential venous interventions needed. Admission and Anticipated Discharge Date Admission Date: January 06, 2025 Subjective PPD #1 s/p right iliac vein mechanical thrombectomy. He is now back on heparin drip and is doing well this morning, with less leg swelling. He has been up and walking around without difficulty. No pain behind right knee. In reviewing notes, no plan for interventional pain procedure in house. Would recommend transitioning back to his Xarelto. Would recommend bridging with Lovenox once coming off of Xarelto for any procedure given his history of recurrent DVT. Physical Exam Physical Exam: well developed, well nourished, in no distress, sitting up on edge of bed eating breakfast. Normal respiratory effort. RLE with improvement in purplish red color. Edema is less this morning. Leg is soft. Skin is warm and sensation intact. Right popliteal fossa dressing with dried blood, no active bleeding noted. No hematoma appreciated. Results & Data Vital Signs (Past 12 Hours) Vital Signs Temp Pulse Resp BP Pulse Ox O2 Del Method 01/10/25 07:50 36.8 C 82 19 138/74 95 Room Air 01/10/25 03:04 36.7 C 77 18 136/80 95 Room Air 01/09/25 23:44 36.6 C 81 19 136/80 93 Room Air Laboratory Results 01/10/25 01/09/25 01/09/25 06:08 21:08 12:54 APTT 63 H PTT Ratio 2.3 Activ Coag Time Kaolin Protein C Activity Heparin Anti-Xa, Unfract 0.36 0.34 0.46 Homocysteine 01/09/25 01/09/25 01/07/25 11:01 10:50 08:24 APTT PTT Ratio Activ Coag Time Kaolin 204 H 106 Protein C Activity 90 Heparin Anti-Xa, Unfract Homocysteine 17.2 H Medications Administered Home Medications Medication Instructions Recorded Confirmed Last Taken folic acid 800 mcg tablet 0.8 mg PO HS 08/16/24 01/06/25 12/29/24 furosemide 20 mg tablet (Lasix) 20 mg PO Q OTHER DAY PRN Edema 08/16/24 01/06/25 01/04/25 rivaroxaban 20 mg tablet (Xarelto) 20 mg PO QPM 08/16/24 01/06/25 01/02/25 tamsulosin 0.4 mg capsule 0.4 mg PO QPM 08/16/24 01/06/25 Unknown gabapentin 100 mg capsule 100 mg PO BID 11/07/24 01/06/25 01/03/25 glipizide 10 mg tablet 10 mg PO QPM 11/07/24 01/06/25 01/04/25 cholecalciferol (vitamin D3) 125 125 mcg PO HS 12/26/24 01/06/25 01/05/25 20:00 mcg (5,000 unit) tablet (Vitamin D3) fluticasone propionate 50 1 spray intranasal HS 12/26/24 01/06/25 01/04/25 mcg/actuation nasal spray,suspension lecithin 1,200 mg capsule 2,400 mg PO QAM 12/26/24 01/06/25 12/29/24 vitamin E 268 mg (400 unit) capsule 2 cap PO QAM 12/26/24 01/06/25 Unknown losartan 25 mg tablet 25 mg PO HS 01/06/25 01/06/25 Unknown Active Medications Generic Name Dose Route Start Last Admin Trade Name Freq PRN Reason Stop Dose Admin Folic Acid 800 mcg 01/07/25 01:51 01/09/25 20:43 Folic Acid 400 Mcg Tab PO 02/06/25 01:50 800 mcg HS HADLEY Administration Gabapentin 100 mg 01/07/25 01:51 01/10/25 08:58 Gabapentin 100 Mg Cap PO 02/06/25 01:50 100 mg BID HADLEY Administration Glipizide 10 mg 01/07/25 21:00 01/09/25 20:45 Glipizide 5 Mg Tab PO 02/06/25 20:59 10 mg HS HADLEY Administration Heparin Sodium/Dextrose 25,000 units in 500 mls @ 27 mls/hr 01/06/25 16:15 01/10/25 07:10 Heparin 02302 Unit/500 Ml D5w IV 02/05/25 16:14 1,350 units/hr .[id number] HADLEY 27 mls/hr Titration Protocol 1,350 UNITS/HR Losartan Potassium 25 mg 01/07/25 01:51 01/09/25 20:44 Losartan Potassium 25 Mg Tab PO 02/06/25 01:50 25 mg HS HADLEY Administration Polyethylene Glycol 17 gm 01/07/25 01:51 01/08/25 20:34 Polyethylene (Miralax) 17 Gm Pack PO 02/06/25 01:50 17 gm DAILY PRN Administration Constipation Sodium Chloride 1 sprays 01/09/25 09:02 01/09/25 09:08 Sodium Chloride 0.65% Na Soln 45 Ml ([place]) NA 02/08/25 09:01 1 sprays Q4H PRN Administration Congestion Tamsulosin HCl 0.4 mg 01/07/25 01:51 01/09/25 20:44 Tamsulosin Hcl 0.4 Mg Cap PO 02/06/25 01:50 0.4 mg QPM HADLEY Administration Vitamin D 125 mcg 01/07/25 01:51 01/09/25 20:44 Cholecalciferol 125 Mcg (5,000 Units) Tab PO 02/06/25 01:50 125 mcg HS HADLEY Administration PG Care Time/CCT Total # of Minutes Spent Total Time Spent with Patient: Total time spent is greater than 50% in coordination of care (as documented) at patient's floor/unit and/or counseling patient:
[2025-01-10] MEDS: FUROSEMIDE 40 MG/4 ML VIAL IV ONE (11:59)
[2025-01-10] MEDS ORDERED: RIVAROXABAN 20 MG TAB PO SCH (13:10)
--- NOTE | 2025-01-10 13:12 | Hospitalist Progress Note ---
Date of Service January 10, 2025 Assessment & Plan (1) DVT (deep venous thrombosis): (2) COVID toes: (3) Hyperbilirubinemia: (4) Pneumonia due to COVID-19 virus: (5) (HFpEF) heart failure with preserved ejection fraction: Plan 79-year-old male PMHx HTN, OA, chronic radicular lumbar pain/low back pain, history of DVT on Xarelto, and BPH presenting for R leg swelling and discoloration. Patient has been off his Xarelto for approximately 3 days for preprocedure reasons. His evaluation is without leukocytosis/leukopenia, stable H&H, plt at 118,; CMP no gross electrolyte abnormalities with exception of slightly elevated BUN/creatinine ratio 27.8 and a bilirubin of 2. UA without infection. He is COVID-positive and CXR reveals a possible R lobe developing pneumonia. 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 Heparin drip is initiated in the ED. Patient without respiratory symptoms at time of admission. Further management for DVT. 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 ? Xarelto failure, has been off for ~ 3 days then with a very quick development of clot if so. - RLE venous Doppler positive for DVT (R common femoral, R superficial femoral, R popliteal, superficial thrombus great saphenous vein) - Aorta with runoff CTA occlusion RICHI bilaterally, possible occlusion RPCA and peroneal arteries, moderate stenosis L peroneal artery -He is now s/p mechanical thrombectomy - Hypercoag workup pending (deferred anti-thrombin III + lupus testing since on heparin) - Resume Heparin by weight -Since he is considered technically xarelto failure, would start PO Eliquis 10mg BID - Per Ortho spine, no plans to insert pain stimulator during this admission due to COVID PNA, they will plan outpatient insertion in a month #COVID Pt does have possible early COVID pneumonia COVID 19 diagnosed earlier day of arrival, however patient was without symptoms. 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 Seen 4 day BRAND STRATEGY MANAGER, prescribed Z-pack at that time, has been taking as prescribed. Unknown sick contacts. Not hypoxic. - CBC without leukocytosis or leukopenia - CXR possible small early pneumonia at the R lung base - IS, O2 if needed - none at baseline - Isolation precautions - DuoNeb prn wheezing/SOB #Chronic Back Pain - pending spinal stimulator implant with Dr. Swartz, likely to be done outpatient due to COVID PNA -Unfortunately off his DO AC he had a clot as above. -His pain stimulator will be implanted non urgently outpatient due to his COVID PNA -Per Ortho spine, likely in a month #Hyperbilirubinemia Without abdominal pain, no vomiting. Still with gallbladder. - Bilirubin 2.0, LFTs otherwise WNL; pending direct bilirubin - Aorta w/ runoff CTA reveals hepatic cysts and fatty infiltration of liver, gallbladder is unremarkable w/o bile duct dilatation - Further imaging deferred at time of admission #T2DM H/o T2DM; At home regimen includes glipizide, no insulin use. Neuropathy as well, on gabapentin. - Glucose on arrival 209; A1c pending - SSI deferred at time of admission - continue home glipizide - Continue gabapentin - BSG ACHS - Adjust regimen as needed #HTN- Losartan - continue #CHFwpEF Last echo showes EF 55-60% - continue Furosemide prn #BPH- Tamsulosin - continue Dispo: Admit, PCU VTE Prophylaxis: Heparin - treatment dose Disposition: hopefully d/c home tomorrow Admission and Anticipated Discharge Date Admission Date: January 06, 2025 Subjective patient seen and examined, he is disappointed that he will not get his pain stimulator during this admission Review of Systems Review of Systems: All systems reviewed are negative, apart from the ones contained in the history. Physical Exam Physical Exam: The patient is awake, alert and oriented 3, well developed and well nourished, normocephalic and atraumatic, lying in bed and in no acute distress. HEENT--PERRL, EOMI, mucous membranes and oropharynx mildly dry Neck--supple. No JVD. No bruits. Thyroid normal, trachea midline, no adenopathy. Heart--normal S1 and S2. No murmurs, rubs or gallops. Lungs--clear bilaterally, no respiratory distress, no accessory muscle use. Abdomen--normal bowel sounds and soft. Extremities--no cyanosis or clubbing. leg edema. Dermatologic--normal skin turgor, normal color, no abnormal lymph nodes, no rash. Neurologic--cranial nerves II through XII grossly intact. Rheumatologic--normal range of motion. Psychiatric--normal affect. Results & Data Results & Data Vital Signs (Past 12 Hours) Vital Signs Temp Pulse Pulse Resp BP Pulse Ox O2 Del Method 01/10/25 11:37 98.4 F 89 19 126/82 96 Room Air 01/10/25 08:00 50 L 01/10/25 07:50 98.2 F 82 19 138/74 95 Room Air 01/10/25 03:04 98.1 F 77 18 136/80 95 Room Air PG Care Time/CCT Total # of Minutes Spent Total Time Spent with Patient: Total time spent is greater than 50% in coordination of care (as documented) at patient's floor/unit and/or counseling patient: Coding Level of Care Code 23677 SUB INP/OBS CARE 2/35MIN Diagnoses DVT (deep venous thrombosis) I82.409 COVID toes U07.1; R23.8 Hyperbilirubinemia E80.6 Pneumonia due to COVID-19 virus U07.1; J12.82 (HFpEF) heart failure with preserved ejection fraction I50.30 Time Spent (min) 35
[2025-01-10] MEDS: APIXABAN 5 MG TABLET PO SCH (13:51)
[2025-01-11] MEDS ORDERED: APIXABAN 5 MG TABLET PO SCH
[2025-01-11 07:30] VITALS: RESP 20; TEMP 97.7
[2025-01-11 10:10] VITALS: BP 176/86; PULSE 75
--- NOTE | 2025-01-11 10:25 | Vascular Surgery Progress Note ---
Date of Service January 11, 2025 Assessment & Plan (1) DVT (deep venous thrombosis): Plan: PPD 2 s/p Right iliac vein mechanical thrombectomy, with much improved flow channel throughout the right iliac artery and previous stent. He tolerated procedure well and has been transitioned to Eliquis, which he is tolerating. Would recommend that should he need to come off of Eliquis for procedures, such as his spinal cord stimulator, that he bridge with Lovenox. Recommend following up with PCP for stitch removal in one week (Thursday/Thursday), given he lives 3 hours away Follow up with vascular surgery in 3-4 weeks to go over records and make plans for any potential venous interventions needed. Admission and Anticipated Discharge Date Admission Date: January 06, 2025 Subjective PPD #2 s/p right iliac vein mechanical thrombectomy. Started Eliquis yesterday evening and tolerating. Leg feels great and he has no complaints. Physical Exam Physical Exam: well developed, well nourished, in no distress, sitting up in bed. Normal respiratory effort. RLE with improvement in color. Edema is less this morning. Results & Data Vital Signs (Past 12 Hours) Vital Signs Temp Pulse Pulse Pulse Resp BP BP 01/11/25 10:08 36.5 C 78 75 20 176/86 H 150/81 H 01/11/25 07:29 36.5 C 78 20 150/81 H 01/11/25 07:00 69 01/11/25 03:35 36.6 C 78 19 143/84 H 01/10/25 23:06 81 01/10/25 23:02 36.7 C 80 21 134/80 Pulse Ox O2 Del Method 01/11/25 10:08 93 01/11/25 07:29 93 Room Air 01/11/25 07:00 01/11/25 03:35 94 Room Air 01/10/25 23:06 01/10/25 23:02 94 Room Air Laboratory Results 01/07/25 08:24 Protein S Activity 72 Medications Administered Home Medications Medication Instructions Recorded Confirmed Last Taken folic acid 800 mcg tablet 0.8 mg PO HS 08/16/24 01/06/25 12/29/24 furosemide 20 mg tablet (Lasix) 20 mg PO Q OTHER DAY PRN Edema 08/16/24 01/06/25 01/04/25 tamsulosin 0.4 mg capsule 0.4 mg PO QPM 08/16/24 01/06/25 Unknown gabapentin 100 mg capsule 100 mg PO BID 11/07/24 01/06/25 01/03/25 glipizide 10 mg tablet 10 mg PO QPM 11/07/24 01/06/25 01/04/25 cholecalciferol (vitamin D3) 125 125 mcg PO HS 12/26/24 01/06/25 01/05/25 20:00 mcg (5,000 unit) tablet (Vitamin D3) fluticasone propionate 50 1 spray intranasal HS 12/26/24 01/06/25 01/04/25 mcg/actuation nasal spray,suspension lecithin 1,200 mg capsule 2,400 mg PO QAM 12/26/24 01/06/25 12/29/24 vitamin E 268 mg (400 unit) capsule 2 cap PO QAM 12/26/24 01/06/25 Unknown losartan 25 mg tablet 25 mg PO HS 01/06/25 01/06/25 Unknown apixaban 5 mg (74 tabs) tablets in 5 mg PO BID #74 ea 01/11/25 Unknown a dose pack (Social 2 Step) Active Medications Generic Name Dose Route Start Last Admin Trade Name Freq PRN Reason Stop Dose Admin Apixaban 10 mg 01/10/25 13:10 01/10/25 19:59 Apixaban 5 Mg Tablet PO 01/16/25 21:01 10 mg BID HADLEY Administration Folic Acid 800 mcg 01/07/25 01:51 01/10/25 19:58 Folic Acid 400 Mcg Tab PO 02/06/25 01:50 800 mcg HS HADLEY Administration Gabapentin 100 mg 01/07/25 01:51 01/10/25 20:00 Gabapentin 100 Mg Cap PO 02/06/25 01:50 100 mg BID HADLEY Administration Glipizide 10 mg 01/07/25 21:00 01/10/25 20:00 Glipizide 5 Mg Tab PO 02/06/25 20:59 10 mg HS HADLEY Administration Losartan Potassium 25 mg 01/07/25 01:51 01/10/25 19:59 Losartan Potassium 25 Mg Tab PO 02/06/25 01:50 25 mg HS HADLEY Administration Polyethylene Glycol 17 gm 01/07/25 01:51 01/08/25 20:34 Polyethylene (Miralax) 17 Gm Pack PO 02/06/25 01:50 17 gm DAILY PRN Administration Constipation Sodium Chloride 1 sprays 01/09/25 09:02 01/09/25 09:08 Sodium Chloride 0.65% Na Soln 45 Ml ([place]) NA 02/08/25 09:01 1 sprays Q4H PRN Administration Congestion Tamsulosin HCl 0.4 mg 01/07/25 01:51 01/10/25 20:00 Tamsulosin Hcl 0.4 Mg Cap PO 02/06/25 01:50 0.4 mg QPM HADLEY Administration Vitamin D 125 mcg 01/07/25 01:51 01/10/25 20:01 Cholecalciferol 125 Mcg (5,000 Units) Tab PO 02/06/25 01:50 125 mcg HS HADLEY Administration PG Care Time/CCT Total # of Minutes Spent Total Time Spent with Patient: Total time spent is greater than 50% in coordination of care (as documented) at patient's floor/unit and/or counseling patient:
--- NOTE | 2025-01-11 10:42 | Discharge Summary ---
Date of Service January 11, 2025 Admission HPI Per Admitting Provider 79-year-old male PMHx HTN, OA, chronic radicular lumbar pain/low back pain, history of DVT on Xarelto, and BPH presenting for R leg swelling and discoloration. Patient has been off of his Xarelto for 3 days as he was due to have a nerve stimulator placed the day of arrival but unfortunately tested positive for COVID so the procedure was canceled. Patient reports prior history of DVT in the right leg in February 2024 because his "vessels were crushed" and this required surgical intervention. 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 At approximately 0300 the day PUBLIC RELATIONS COUNSELOR he notes that his thigh started to have some discomfort and appeared discolored. He sat in his recliner most of the time and was very noticeable of the symptoms. His thigh became a darker purple and was tender to touch, he initially thought it was a charley horse but states that it felt a little different than normal charley horse. He was having difficulties walking secondary to the pain. He was seen by the preop nurse the morning of arrival, inevitably testing positive for COVID-19 but also notes that the nurse was concerned about the patient's leg, stating that it appeared abnormal. Given that he was unable to have the surgery secondary to testing positive for COVID, he came to the ED. Patient is without any respiratory symptoms at this time. No palpitations, dizziness, or near syncope. Patient reports that he does not have any known sick contacts specifically with COVID-19. However the week PUBLIC RELATIONS COUNSELOR he did have few days of cold- like symptoms with a nonproductive cough which he says has resolved mostly. He was prescribed an oral antibiotic from his PCP in [place] for the symptoms which he has been taking as prescribed. Patient denies chest pain, SOB, palpitations, abdominal pain, N/V/D/C, numbness/tingling, fever/chills, LUTS, weakness, syncope, or falls. ED evaluation CBC without leukocytosis, stable H&H; CMP BUN 30, ratio 27.8, glucose 209, bilirubin 2, alkaline phosphatase 113; UA not suspicious for infection; COVID-positive; CXR possible small early PNA R lung base; venous Doppler R LE positive DVT of RLE (right, femoral vein, right superficial femoral vein, right popliteal vein); aorta with runoff CTA normal- appearing aorta, no stenosis renal/mesenteric/pelvic/proximal arteries, occlusion of RICHI bilaterally and possible occlusion of R GEOLOGICAL MANAGER and peroneal arteries, bilateral common iliac vein and right external iliac vein stents, fatty infiltrated liver, hepatic bilateral renal cyst, diverticulosis without diverticulitis, and right knee Neumann's cyst with small L knee Neumann's cyst of joint body, coronary atherosclerosis.; Provided with heparin drip as initiated in ED. Admission Exam (Per Admitting) Constitutional The patient is awake, alert and oriented 3, well developed and well nourished, normocephalic and atraumatic, lying in bed and in no acute distress. HEENT--PERRL, EOMI, mucous membranes and oropharynx mildly dry Neck--supple. No JVD. No bruits. Thyroid normal, trachea midline, no adenopathy. Heart--normal S1 and S2. No murmurs, rubs or gallops. Lungs--clear bilaterally, no respiratory distress, no accessory muscle use. Abdomen--normal bowel sounds and soft. Extremities--no cyanosis or clubbing. No edema. Dermatologic--normal skin turgor, normal color, no abnormal lymph nodes, no rash. Neurologic--cranial nerves II through XII grossly intact. Rheumatologic--normal range of motion. Psychiatric--normal affect. Discharge Data Consultations 01/06/25 19:54 ED Decision to Admit Stat 01/07/25 01:51 Consult Hematology Routine Consult Vascular Surgery Routine 01/08/25 12:51 Consult Orthopedic Spine Surgery Routine Procedures Performed Operation Date: 01/09/25 10:00 Actual Procedures p SC Venous [facility] Thrombectomy - Artis Shi MD Hospital Course (1) DVT (deep venous thrombosis): (2) COVID toes: (3) Hyperbilirubinemia: (4) Pneumonia due to COVID-19 virus: (5) (HFpEF) heart failure with preserved ejection fraction: Plan 79-year-old male PMHx HTN, OA, chronic radicular lumbar pain/low back pain, history of DVT on Xarelto, and BPH presenting for R leg swelling and discoloration. Patient has been off his Xarelto for approximately 3 days for preprocedure reasons. His evaluation is without leukocytosis/leukopenia, stable H&H, plt at 118,; CMP no gross electrolyte abnormalities with exception of slightly elevated BUN/creatinine ratio 27.8 and a bilirubin of 2. UA without infection. He is COVID-positive and CXR reveals a possible R lobe developing pneumonia. Venous Doppler of the RLE is positive for a DVT, and aorta with runoff CTA shows occlusion of RICHI bilaterally and possible occlusion of R GEOLOGICAL MANAGER and peroneal arteries. Heparin drip is initiated in the ED. Patient without respiratory symptoms at time of admission. Further management for DVT. #RLE DVT Prior history on DVT, on Xarelto at baseline but had discontinued his Xarelto approximately 3 days PUBLIC RELATIONS COUNSELOR as he was to have a procedure on 01/06/2025 for a pain pump/stimulator, ultimately canceled as he tested positive for COVID-19. ? Xarelto failure, has been off for ~ 3 days then with a very quick development of clot if so. - RLE venous Doppler positive for DVT (R common femoral, R superficial femoral, R popliteal, superficial thrombus great saphenous vein) - Aorta with runoff CTA occlusion RICHI bilaterally, possible occlusion RPCA and peroneal arteries, moderate stenosis L peroneal artery -He is now s/p mechanical thrombectomy - Hypercoag workup pending (deferred anti-thrombin III + lupus testing since on heparin) - Resume Heparin by weight -Since he is considered technically xarelto failure, would start PO Eliquis 10mg BID for 7 days, then 5mg BID - Per Ortho spine, no plans to insert pain stimulator during this admission due to COVID PNA, they will plan outpatient insertion in a month #COVID Pt does have possible early COVID pneumonia COVID 19 diagnosed earlier day of arrival, however patient was without symptoms. Reports ~ 1 week PUBLIC RELATIONS COUNSELOR was with URI symptoms and cough (nonproductive), utilized at home nebulizer and felt better. Seen 4 day PUBLIC RELATIONS COUNSELOR, prescribed Z-pack at that time, has been taking as prescribed. Unknown sick contacts. Not hypoxic. - CBC without leukocytosis or leukopenia - CXR possible small early pneumonia at the R lung base - IS, O2 if needed - none at baseline - Isolation precautions - DuoNeb prn wheezing/SOB #Chronic Back Pain - pending spinal stimulator implant with Dr. Swartz, likely to be done outpatient due to COVID PNA -Unfortunately off his DO AC he had a clot as above. -His pain stimulator will be implanted non urgently outpatient due to his COVID PNA -Per Ortho spine, likely in a month #Hyperbilirubinemia Without abdominal pain, no vomiting. Still with gallbladder. - Bilirubin 2.0, LFTs otherwise WNL; pending direct bilirubin - Aorta w/ runoff CTA reveals hepatic cysts and fatty infiltration of liver, gallbladder is unremarkable w/o bile duct dilatation - Further imaging deferred at time of admission #T2DM H/o T2DM; At home regimen includes glipizide, no insulin use. Neuropathy as well, on gabapentin. - Glucose on arrival 209; A1c pending - SSI deferred at time of admission - continue home glipizide - Continue gabapentin - BSG ACHS - Adjust regimen as needed #HTN- Losartan - continue #CHFwpEF Last echo showes EF 55-60% - continue Furosemide prn #BPH- Tamsulosin - continue Dispo: Admit, PCU VTE Prophylaxis: Heparin - treatment dose Disposition: d/c home Coding Level of Care Code 71711 INP/OBS DISCH >30 MIN Diagnoses DVT (deep venous thrombosis) I82.409 COVID toes U07.1; R23.8 Hyperbilirubinemia E80.6 Pneumonia due to COVID-19 virus U07.1; J12.82 (HFpEF) heart failure with preserved ejection fraction I50.30 Time Spent (min) 35
[2025-01-11 11:11] VITALS: O2SAT 97
[2025-01-12 17:17] LABS: Factor 5 Mutation POSITIVE
== END 2025-01-11 12:10 | disposition home or self-care (01) | DRG 270 ==
LOC: ED 12:20 → 2S 20:31 → SUATTDRO 20:31 → 2S 01-07 01:11